=== PATIENT | female | born 1960 | race Caucasian/White ===

== ENCOUNTER 2024-06-14 10:36 | Emergency (ER) | payer BC, SELFPAY ==
[2024-06-14 10:44] VITALS: BP 108/64; PULSE 85; RESP 20; TEMP 36.5; O2SAT 98
[2024-06-14 11:12] LABS: EDCOVIDSCREEN Negative (Negative); EDINFLUASCREEN Negative (Negative); EDINFLUBSCREEN Negative (Negative)
--- NOTE | 2024-06-14 11:12 | ED_ITS ---
HPI - URI/Sore Throat General Chief Complaint: Upper Respiratory Infection Stated Complaint: cough Time Seen by Provider: 06/14/24 11:00 Source: patient, RN notes reviewed and old records reviewed Mode of arrival: ambulatory Limitations: no limitations History of Present Illness HPI Narrative: 63 year old female who presents to [facility] care with complaints of having nasal drainage and post nasal drainage since Tuesday and Tuesday lost her voice and has noted that drainage has turned greenish tinged. Patient reports that she has noted some cough and she has also had some bilateral ear pain and some sore throat. Patient reports that she has been taking Tylenol and also has taken some Zyrtec for her symptoms.Patient reports that she has had fevers running around 100F. MD elicited complaint: fever, cough, rhinorrhea, nasal congestion and other (ear pain) Onset (ago): day(s) (5 days) Consistency: progressively worsening Pain scale (0-10): 6 Description of mucous: green Able to tolerate fluids by mouth: Yes Treatments prior to arrival: acetaminophen and other (Zyrtec) Related Data Home Medications ?Medication ?Instructions ?Recorded ?Confirmed ?Last Taken ?Type atenolol 25 mg tablet mg 06/14/24 Unknown History dextroamphetamine-amphetamine 10 06/14/24 Unknown History mg tablet dextroamphetamine-amphetamine ER PO 06/14/24 Unknown History 15 mg 24hr capsule,extend release duloxetine 20 mg capsule,delayed mg PO 06/14/24 Unknown History release estradiol 0.01% (0.1 mg/gram) vaginal 06/14/24 Unknown History vaginal cream gabapentin 300 mg capsule mg 06/14/24 Unknown History pramipexole 1 mg tablet mg 06/14/24 Unknown History Allergies Allergy/AdvReac Type Severity Reaction Status Date / Time codeine Allergy Unknown ITCHING Verified 06/14/24 10:55 Review of Systems Review of Systems: CONSTITUTIONAL: Reports malaise, chills, sweats, or fever. EYES: Denies visual changes, redness, or discharge ENT: Reports rhinorrhea, congestion, sinus pressure, otalgia and sore throat. CARDIOVASCULAR: Denies chest pain, palpitations, or edema. RESPIRATORY: Reports cough.? Denies dyspnea. GASTROINTESTINAL: Denies abdominal pain, nausea, vomiting, diarrhea SKIN: Denies rash or itching. MUSCULOSKELETAL: Denies myalgia. NEUROLOGIC: Denies headache. All systems reviewed & are unremarkable except as noted in HPI and below PMFSH Past Medical History Medical History (Updated 06/15/24 @ 14:09 by Stephanie Leahy NP) Hypertension Pneumonia Anxiety and depression Restless leg syndrome History of kidney cancer Narcolepsy Migraine Surgical History Surgical History Hx of cholecystectomy Previous back surgery History of left nephrectomy cancer Social History Social History Smoking status: Never smoker Alcohol intake: current Alcohol use details: rare Substance use type: does not use Comments At time of signature, agree with nursing past medical, surgical, social and family history. There is no relevant family history pertinent to the presenting complaint Exam Narrative: GENERAL: Well-appearing, well-nourished, and in no acute distress. HEAD: Normocephalic EYES: PERRLA, conjunctivae clear ENT: Nares clear, turbinates edematous and erythematous, clear to greenish tinged discharge, sinus pressure. Mucous membranes moist. TM pearly hernandez with dull light reflex bilaterally; no tragal tenderness. Oropharynx erythematous without lesions. Tonsils not enlarged and without exudate, no drooling, positive for hoarseness, no trismus, uvula midline.post nasal drainage NECK: Supple. No lymphadenopathy CHEST: Clear to auscultation, breath sounds equal. No wheezing, rhonchi, rales, or stridor. No respiratory distress, speaks in full sentences.cough noted HEART: Regular rate and rhythm. No murmur heard. SKIN: Warm, dry, no rash. NEURO: Alert and oriented x3. PSYCH: Normal mood and affect Course Course Emergency Course: Patient is aware of diagnosis, understands and agrees to treatment plan.? Anticipatory guidance given.? Patient agrees to follow-up as directed and is aware of reasons to seek care at the emergency department. Portions of this record may have been created with voice recognition software Level of Care: Express Care Visit Vital Signs Vital signs: Vital Signs Temperature 36.5 C 06/14/24 10:44 Pulse Rate 85 06/14/24 10:44 Respiratory Rate 20 06/14/24 10:44 Blood Pressure 108/64 06/14/24 10:44 Pulse Oximetry 98 04/24/25 10:44 Oxygen Delivery Room Air 06/14/24 10:44 Temperature 36.5 C 06/14/24 10:44 Pulse Rate 85 06/14/24 10:44 Respiratory Rate 20 06/14/24 10:44 Blood Pressure 108/64 06/14/24 10:44 Pulse Oximetry 98 06/14/24 10:44 Oxygen Delivery Room Air 06/14/24 10:44 Reviewed MDM - URI/Sore Throat MDM Narrative Medical decision making narrative: Differential diagnosis considered: Cox virus, strep pharyngitis, allergic rhinitis, upper respiratory tract infection, sinusitis, rhinosinusitis, nasopharyngitis. viral pharyngitis, otitis media, otitis externa, pneumonia, bronchitis, viral cough syndrome, viral syndrome, and influenza.? Exam findings show no acute concerns or changes; patient is non-toxic appearing and is in no distress.? Patient is appropriate for outpatient treatment and follow-up. Differential Diagnosis Differential diagnosis: Likely upper respiratory infection, sinusitis, viral infection and other (cough) Medical Records Attestation: I reviewed the patient's medical records. Lab Data Attestation: I reviewed the patient's lab results. Lab results narrative: influenza A negative, Influenza B negative, COVID antigen negative Labs: Lab Results 06/14/24 Range/Units 10:53 POC Influenza A Ag Negative (Negative) POC Influenza B Ag Negative (Negative) POC SARS CoV-2 Ag Negative (Negative) reviewed Critical Care Time Critical Care Time Critical Care Time: No Discharge Plan Discharge Clinical Impression: Bacterial sinusitis Patient Disposition: Home Condition: Stable Instructions: Antibiotic Form, Sinusitis (ED) Additional Instructions: Increase fluids especially juices and water [id number] cough and cold medicine of your choice for your symptoms Delsym or Robitussin DM for cough Cough tablets as directed for cough--do not bite, chew or suck on--swallow whole Zyrtec Claritin or Micaela daily include Coricidin brand decongestant heat to the face 20-30 minutes 4-6 times a day for pain Salt water gargles, throat lozenges or throat sprays as desired Antibiotic as directed--finished the medication If your symptoms persist, change or worsen significantly before you can contact your personal physician then please, without delay, go to the emergency department for further evaluation. Follow-up with PCP in 7-10 days or sooner if needed Patient Language: German Prescriptions: New amoxicillin-pot clavulanate 875-125 mg tablet 1 tablet PO Q12H Qty: 20 0RF Rx Instructions: take with food, recommend taking probiotic of eating Activia yogurt while on this medication benzonatate 150 mg capsule 150 mg PO TID PRN (Reason: cough) Qty: 20 0RF No Action pramipexole 1 mg tablet dextroamphetamine-amphetamine 10 mg tablet atenolol 25 mg tablet gabapentin 300 mg capsule estradiol 0.01 % (0.1 mg/gram) cream VAGINAL dextroamphetamine-amphetamine 15 mg capsule,extended release 24hr PO duloxetine 20 mg capsule,delayed release(DR/EC) PO Follow-up/Referrals: UNKNOWN,DOCTOR [Primary Care Provider] - Time of Disposition: 11:36 Quality [place] Coma Scale Eyes: Open Verbal: Oriented and Alert Motor: Follows Commands Lisa Coma Total Score: 15
--- OUTSIDE RECORDS SUMMARY | 2024-06-14 12:00 | XMS_ITS | Referral Summary ---
Author Organization [facility] al Address [address] [place] [address] Care Team Providers Care Engineering Coordinator Name Role Phone Zachary Kwon MD Unavailable [phone] Dacia Tan MD Primary Care Provid er Satish Pedroza MD Unavailable Encounters Date Type Department Care Team Description 06/13/2024 Orders Only [facility] General Neurology [address] 6th [address] [place] [id number] Nicole Beck Intractable chronic migraine without aura and without status migrainosus (Primary Dx) 04/04/2024 8:30 AM CERTIFIED PARALEGAL Telemedicine [facility] Neuro Sleep [address] 6[address] [place] [address] Bharathi Durán PA 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); Restless legs syndrome (RLS); Anxiety 04/03/2024 Documentation [facility] [address] [place] [address] Evie Israel RMA 04/03/2024 Documentation [facility] [address] [place] [address] Rick Israelry JADYNAbdiel 03/28/2024 8:20 AM CERTIFIED PARALEGAL [facility] - [facility] Urology [address] [facility] 11th [place] [address] [place] [address] Brandon Lam MD Malignant neoplasm of left kidney (HCC) (Primary Dx) 03/23/2024 Telephone [facility] ([facility]) - [facility] [address] [facility] [address] [place] [address] [place] [address] Broderick Crum 03/22/2024 Orders Only [facility] General Neurology [address] 6[address] [place] [id number] Nicole Beck Intractable chronic migraine without aura and without status migrainosus (Primary Dx) 03/21/2024 9:00 AM CERTIFIED PARALEGAL - 03/21/2024 11:59 PM CERTIFIED PARALEGAL Hospital Encounter [facility] Radiology [facility]) [address] [place] [id number] Brandon Lam MD Malignant neoplasm of left kidney (HCC) Discharge Disposition: Discharge to home or self care from Last 3 Months Allergies Active Allergy Reactions Criticality Noted Date Comments Codeine Itching Low Hydrocodone Itching,Hives Medium 09/16/2014 Oxycodone Itching Low 07/15/2021 Tramadol Itching,Hives Medium 09/16/2014 Medications syringe with needle 3 mL 25 gauge x 1 syringe U MONTHLY FOR VITAMIN B12 INJECTION 8 Active dicyclomine (BENTYL) 10 mg capsuleIndicat ions:Irritable Bowel Syndrome Take 1 capsule (10 mg total) by mouth as needed 7 Active fluticasone (FLONASE) 50 mcg/actuation nasal spray Administer 1 spray into each nostril as needed for allergies 3 Active epinastine 0.05 % ophthalmic solution Administer 1 drop into both eyes 2 (two) times a day as needed (allgeries) 3 9 Active cetirizine (ZyrTEC) 10 mg tabletIndicati ons:Seasonal Allergic Rhinitis Take 1 tablet (10 mg total) by mouth nightly as needed for allergies Active BD Integra Syringe 3 mL 25 gauge x 1 syringe U UTD MONTHLY FOR VIT B-12 INJECTIONS 0 Active Restasis 0.05 % ophthalmic emulsionIndica tions:dry eyes Administer 1 drop into both eyes 2 (two) times a day as needed 0 Active atenoloL (TENORMIN) 25 mg tablet Take 1 tablet (25 mg total) by mouth daily 2 Active cyanocobalamin (Vitamin B-12) 1,000 mcg/mL injection 3 Active ZOLMitriptan (ZOMIG) 5 mg tablet TAKE 1 TABLET BY MOUTH AT ONSET OF MIGRAINE, MAY REPEAT ONCE AFTER 2 HOURS, NOT TO EXCEED 2 TABLETS IN 24 HOURS 12 tablet [address] (CYMBALTA) 20 mg capsule Take 1 capsule (20 mg total) by mouth 2 (two) times a day 60 capsule 11 4 Active gabapentin (NEURONTIN) 300 mg capsule TAKE 2 CAPSULES BY MOUTH EVERY MORNING, 3 CAPSULES IN THE LATE AFTERNOON/ EARLY EVENING, AND 2 CAPSULES AT 9:00 PM 210 capsule 11 4 Active clobetasoL (TEMOVATE) 0.05 % ointmentIndica tions:Chronic vulvitis APPLY TOPICALLY TO VULVA TWICE DAILY FOR 14 DAYS 30 g 4 Active promethazine (PHENERGAN) 25 mg suppositoryInd ications:Nause a and Vomiting Insert 1 suppository (25 mg total) into the rectum every 12 (twelve) hours as needed (migraines) 12 each 3 4 Active estradioL (ESTRACE) 0.01 % (0.1 mg/gram) vaginal creamIndicatio ns:Atrophic Vaginitis associated with Menopause Insert 0.5 g into the vagina 2 (two) times a week Apply nightly to vagina for 2 week, then twice weekly. 42 g 3 4 02/02/20 25 Active indomethacin (INDOCIN) 50 mg capsuleIndicat ions:migraine Take 1 capsule (50 mg total) by mouth as needed for pain Migraine. No more than 3 tabs per 24h. 30 capsule 1 5 Active pramipexole (MIRAPEX) 1 mg tablet TAKE 1/2 TABLET BY MOUTH DAILY AT 3:00 TO 4:00 PM AND 1 TABLET AT NIGHT 45 tablet 11 5 Active dextroamphetam ine-amphetamin e XR (ADDERALL XR) 15 mg 24 hr capsuleIndicat ions:Narcoleps y without cataplexy(347. 00) Take 2 capsules (30 mg total) by mouth every morning 60 capsule 5 07/14/19 25 Active dextroamphetam ine-amphetamin e (ADDERALL) 10 mg tabletIndicati ons:Narcolepsy without cataplexy(347. 00) Take 1 tablet PO in the afternoon PRN 30 tablet 5 Active dextroamphetam ine-amphetamin e XR (ADDERALL XR) 15 mg 24 hr capsuleIndicat ions:Narcoleps y without cataplexy(347. 00) Take 2 capsules (30 mg total) by mouth every morning 60 capsule 5 06/06/19 25 Discontin ued(Reord er) dextroamphetam ine-amphetamin e (ADDERALL) 10 mg tabletIndicati ons:Narcolepsy without cataplexy(347. 00) Take 1 tablet PO in the afternoon PRN 30 tablet 5 06/06/19 25 Discontin ued(Reord er) Hospital, Clinic, or Other Facility Administered Medication Ordered Dose Route Frequency Start Date End Date Status onabotulinumtoxin A (BOTOX) 200 unit injection 200 UnitsIndications:I ntractable chronic migraine without aura and without status migrainosus 200 Units OTHER Once for Clinic-Administe red Medication 07/03/2024 Active onabotulinumtoxin A (BOTOX) 200 unit injection 200 UnitsIndications:I ntractable chronic migraine without aura and without status migrainosus 200 Units OTHER Once for Clinic-Administe red Medication 06/13/2024 5 Discontinued Active Problems Problem Noted Date Diagnosed Date Cervical facet joint syndrome 01/31/2023 Cervical radiculopathy 01/31/2023 Neck pain 01/31/2023 Aftercare following bilateral hip joint replacem ent surgery 01/31/2023 Overview (01/31/2023): Phreesia 11/29/2022 SHANNON (obstructive sleep apnea) 09/29/2021 History of nephrectomy 09/29/2021 History of iron deficiency anemia 09/29/2021 Anxiety 09/29/2021 Primary osteoarthritis of left hip 09/02/2021 Overview (09/02/2021): Added automatically from request for surgery [id number] Primary osteoarthritis of right hip 08/05/2021 Renal mass 03/16/2021 Overview (03/16/2021): Added automatically from request for surgery [id number] Gastroesophageal reflux disease 12/23/2020 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 12/23/2020 Vitamin D deficiency 12/23/2020 Unilateral primary osteoarthritis, right hip Chronic bilateral low back pain with bilateral s ciatica 08/27/2019 Migraines 08/27/2019 Hypertension 07/23/2019 Narcolepsy 07/23/2019 Restless legs syndrome (RLS) 07/23/2019 Thrombocytosis 03/21/2018 Intractable chronic migraine without aura and without status migrainosus 10/05/2017 Carpal tunnel syndrome of right wrist 10/03/2017 Depression 10/03/2017 Tethered cord syndrome 10/03/2017 Chronic migraine without aur a without status migrainosus, not intractable 08/22/2017 Irritable bowel syndrome 09/09/2015 Hyperlipidemia, unspecified 05/28/2009 Resolved Problems Problem Noted Date Diagnosed Date Resolved Date Body mass index (BMI) 28.0-28.9, adult 11/06/2019 01/05/2022 Encounter for insertion of i ntrauterine contraceptive device 08/31/2018 08/31/2018 Overview (08/31/2018): Encounter for IUD insertion - (Added by TW Conv) Immunizations Immunization Administration Dates Next Due Influenza, Quadrivalent, Spl it, Intramuscular 01/21/2018 Influenza, Quadrivalent, Spl it, Preservative Free, Intramuscular 11/17/2021,11/06/2019,12/02/2015,12/05 Influenza, Trivalent, IM (MDV) 02/07/2012 Influenza, Unspecified 11/22/2019 Moderna SARS-CoV-2 Monovalen t Vaccination (12+ YRS) 07/29/2021 TD Preservative Free 11/05/2020 Tdap 05/28/2009 Social History Tobacco Use Types Packs/Day Years Used Date Smoking Tobacco: Never Smokeless Tobacco: Never Alcohol Use Standard Drinks/Week Comments Not Currently 0 (1 standard drink = 0.6 oz pur e alcohol) Social Connection and Isolation Panel [NHANES] A nswer Date Recorded Frequency of Communication with Friends and Fami ly Not on file 12/21/2019 Frequency of Social Gatherings with Friends and Family Not on file 12/21/2019 Attends Latter Day Services Not on file 12/20 Active Member of Clubs or Organizations Not on f ile 12/21/2019 Attends Club or Organization Meetings Not on karely e 12/21/2019 Are you , , di vorced, , never , or living with a partner? 12/21/2019 AUDIT-C Answer Date Recorded Q1: How often do you have a drink containing alcohol? Never 06/02/2023 Q2: How many drinks containi ng alcohol do you have on a typical day when you are drinking? Patient does not drink Q3: How often do you have si x or more drinks on one occasion? Never 06/02/2023 PHQ-2 Answer Date Recorded PHQ-2 Total Score 0 09/05/2019 Exercise Vital Sign Answer Date Recorde d Days of Exercise per Week 0 days 2018 Minutes of Exercise per Session 0 min 08/30/2018 Comments No Sex and Gender Information Value Date Recorded Sex Assigned at Not on file Legal Sex Female 6:45 PM CERTIFIED PARALEGAL Gender Identity Female 10/23/2019 8:40 AM CDT Sexual Orientation Straight 07/07/2019 8: 53 AM CDT Last Filed Vital Signs Vital Sign Reading Time Taken Comments Blood Pressure 133/80 03/14/2024 4:19 PM CERTIFIED PARALEGAL Pulse 76 03/14/2024 4:19 PM CERTIFIED PARALEGAL Temperature 36.3 C (97.4 F) 03/14/2024 4:19 PM CERTIFIED PARALEGAL Respiratory Rate 16 08/04/2023 10:07 AM CDT Oxygen Saturation 99% 03/14/2024 4:19 PM CERTIFIED PARALEGAL Inhaled Oxygen Concentration - - Weight 76 kg (167 lb 8 oz) 03/14/2024 4:19 PM CS T Height 165.1 cm (5' 5 ) 03/14/2024 4:19 PM CERTIFIED PARALEGAL Body Mass Index 27.87 03/14/2024 4:19 PM CERTIFIED PARALEGAL Plan of Treatment Not on file Goals Goal Patient Goal Type Associated Problems Recent Progress Patient-Stated? Author CCM Chronic Pain Care Plan Chronic Care Management On track(2023 9:27 AM CDT) No Cristin Johnston, RN Note: Problem: Chronic Pain Goals: 1. Minimize further functional decline 2. Maximize quality of life 3. Control pain Strategies: - Activity/exercise program recommendation - Conservative stepwise pain medicine strategy with multi-disciplinary approach - Recommend healthy lifestyle strategies and compensatory methods as needed [facility] Fall Prevention Care Plan Chronic Care Management No change(05/24 9:39 AM CDT) No Chelsea Patiño RN Note: Problem: Falls Goals: 1. Maintain strength and balance as able 2. Prevent falls and fractures 3. Maximize safety of living environment Strategies: - Educate on fall prevention and follow-up as needed - Recommend activity/exercise program - Refer to allied health as needed - Recommend healthy lifestyle strategies and compensatory methods as needed Medical Devices Implanted Type Area Training And Development Coordinator Device Identifier Shelf Expiration Date Model / Serial / Lot Vesolock [id number] Symmetry Vesolock Large Clip Internal - Sna - [id number] Implanted:Qty : 1 on 03/27/2021 by Zachary Kwon MD at [facility] Clip Left: Abdomen [employer] 04/22/2023 [id number] / NA / [id number] Vesolock [id number] Symmetry Vesolock Large Clip Internal - Sna - [id number] Implanted:Qty : 1 on 03/27/2021 by Zachary Kwon MD at [facility] Clip Left: Abdomen [employer] 04/22/2023 [id number] / NA / [id number] [employer] G7 50mm Multihole Hip D Hemisphere Offset Shell Acetabular [id number] - Sna - [id number] Implanted:Qty : 1 on 08/05/2021 by Sue Oliver MD at [facility] Other - see comments Right: Hip [employer] [id number] 05/19/2031 [id number] / NA / [id number] Description:Implant pause pe rformed [employer] G7 40mm 2 Mobility Hip D Liner Acetabular Cocr [id number] - Sna - [id number] Implanted:Qty : 1 on 08/05/2021 by Sue Oliver MD at [facility] Other - see comments Right: Hip [employer] [id number] 06/15/2031 [id number] / NA / [id number] Description:Implant pause pe rformed [employer] Taperloc 140mm Type 1 Press Fit Reduce Hip 133d 10 High Offset [id number] - Sna - [id number] Implanted:Qty : 1 on 08/05/2021 by Sue Oliver MD at [facility] Other - see comments Right: Hip [employer] [id number] 10/04/2029 [id number] / NA / [id number] Description:Implant pause pe rformed [employer] G7 Type 1 Hip -6mm Offset Taper Sleeve Centering Titanium Biolox 650-1064 - Sna - [id number] Implanted:Qty : 1 on 08/05/2021 by Sue Oliver MD at [facility] Other - see comments Right: Hip [employer] [id number] 08/06/2030 650-1064 / NA / [id number] Description:Implant pause pe rformed [employer] G7 28mm Hip Head Femoral Biolox Delta Biolox Option 650-1055 - Sna - [id number] Implanted:Qty : 1 on 08/05/2021 by Sue Oliver MD at [facility] Other - see comments Right: Hip [employer] [id number] 12/17/2030 650-1055 / NA / [id number] Description:Implant pause pe rformed [employer] [id number] 40mm 28mm Lumen Hip D Liner Acetabular Longevity Sterile Latex - Sna - [id number] Implanted:Qty : 1 on 08/05/2021 by Sue Oliver MD at [facility] Other - see comments Right: Hip [employer] [id number] 06/20/2024 [id number] / NA / [id number] Description:Implant pause pe rformed [employer] G7 40mm 2 Mobility Hip D Liner Acetabular Cocr [id number] - Sna - [id number] Implanted:Qty : 1 on 10/30/2021 by Sue Oliver MD at [facility] Other - see comments [employer] [id number] 07/10/2031 [id number] / NA / [id number] [employer] 40mm 28mm Lumen Hip D Liner Acetabular Longevity Sterile Latex [id number] - Sna - [id number] Implanted:Qty : 1 on 10/30/2021 by Sue Oliver MD at [facility] Other - see comments [employer] [id number] 02/27/2026 [id number] / NA / [id number] [employer] G7 28mm Type 1 Modular Hip Acetabular -3mm Offset Head Femoral 650-1159 - Sna - [id number] Implanted:Qty : 1 on 10/30/2021 by Sue Oliver MD at [facility] Other - see comments [employer] 650-1159 / NA / [employer] Taperloc 137mm Type 1 Press Fit Reduce Hip 133d 9 High Offset [id number] - Sna - [id number] Implanted:Qty : 1 on 10/30/2021 by Sue Oliver MD at [facility] Other - see comments [employer] 12/18/2030 [id number] / NA / [id number] [employer] G7 50mm Multihole Hip D Hemisphere Offset Shell Acetabular [id number] - Sna - [id number] Implanted:Qty : 1 on 10/30/2021 by Sue Oliver MD at [facility] Other - see comments [employer] [id number] 06/12/2031 [id number] / NA / [id number] Description:Implant pause pe rformed on all implants [employer] Trilogy 6.5mm 15mm Self Tap Screw Bone [id number] - Sna - [id number] Implanted:Qty : 1 on 08/05/2021 by Sue Oliver MD at [facility] Screw Right: Hip [employer] [id number] 10/24/2029 [id number] / NA / [id number] Description:Implant pause pe rformed [employer] Trilogy 6.5mm 20mm Self Tap Screw Bone [id number] - Sna - [id number] Implanted:Qty : 1 on 08/05/2021 by Sue Oliver MD at [facility] Screw Right: Hip [employer] [id number] 05/20/2031 [id number] / NA / [id number] Description:Implant pause pe rformed [employer] Trilogy 6.5mm 40mm Self Tap Hip Acetabular Cortical Screw Bone [id number] - Sna - [id number] Implanted:Qty : 1 on 10/30/2021 by Sue Oliver MD at [facility] Screw [employer] [id number] 08/28/2031 [id number] / NA / [id number] [employer] Trilogy 6.5mm 15mm Self Tap Screw Bone [id number] - Sna - [id number] Implanted:Qty : 1 on 10/30/2021 by Sue Oliver MD at [facility] Screw [employer] [id number] 07/27/2031 [id number] / NA / [id number] Procedures Procedure Name Priority Date/Time Associated Diagnosis Comments CT CHEST ABDOMEN PELVIS W CONTRAST Schedule Routine, Read Routine (OP Routine) 03/21/2024 9:52 AM CERTIFIED PARALEGAL Malignant neoplasm of left kidney (HCC) POCT CREATININE - DEVICE Routine 03/21/2024 9:26 AM CERTIFIED PARALEGAL SCREENING MAMMOGRAM BILATERAL W GERARD Schedule Routine, Read Routine (OP Routine) 06/02/2023 2:45 PM CDT Screening mammogram, encounter for PAP AND HIGH RISK HPV, REFLEX TO GENOTYPING Routine 12/23/2020 9:33 AM CDT Encounter for gynecological examination with abnormal finding Screening for cervical cancer SERUM HEPATITIS PANEL Routine 03/25/2014 2:16 PM CERTIFIED PARALEGAL from Last 3 Months or Most Recently Relevant to Health Maintenance Results * CT Chest Abdomen Pelvis W Contrast (03/21/2024 9:52 AM CERTIFIED PARALEGAL) Anatomical Region Laterality Modality Body N/A Computed Tomogra phy 03/21/2024 11:1 3 AM CERTIFIED PARALEGAL Impressions 03/21/2024 11:23 AM CERTIFIED PARALEGAL Single new lymph node in the left the nephrectomy resection bed suspicious for disease recurrence. The node is difficult to access for biopsy. Options include close interval follow-up with CT, MR, or PET scan. Dictated by: Steve Martinez MD The radiology attending physician has personally reviewed this study, and had reviewed and/or edited this written report and agrees with it. Electronically signed by: Serenity Perez M.D. 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 Surveillance. TECHNIQUE: Transaxial computed tomographic images of the chest, abdomen and pelvis were obtained with intravenous contrast according to the standard protocol after the uneventful administration of 75 mL Opti-Ray 350 intravenous contrast. COMPARISON: CT dated 09/26/2023, 01/31/2023, 07/26/2022, 01/18/2022. FINDINGS: Chest: No suspicious pulmonary nodule. No airspace opacity, pleural effusion or pneumothorax. Mild bibasilar atelectasis. Normal heart size. No pericardial effusion. No suspicious mediastinal, axillary, or supraclavicular lymphadenopathy. Nondistended esophagus. Abdomen/Pelvis: No focal suspicious lesion in the liver. The calcified granuloma in the liver parenchyma. Normal spleen. Gallbladder is surgically removed. Mild biliary ductal dilatation likely reservoir effect. Normal pancreas and adrenal glands. Pancreatic tail drop into resection bed which is an expected post-surgical change. Left kidney is surgically removed. Single new lymph node at the resection bed measuring 1.8 x 1.0 cm (series 2 image 151), which was not present on multiple prior studies up to 01/18/2022. Normal right kidney with multiple cysts. No hydronephrosis. Evaluation of pelvis slightly limited by streak artifact from bilateral hip replacement hardware. Within the limitation of bladder appears normal. Uterus is surgically absent. No suspicious adnexal mass. No suspicious pelvic lymphadenopathy. Aorta is normal in course and caliber with mild atherosclerosis. No bowel obstruction. Normal duodenal sweep. Nondistended stomach and esophagus. No free intraperitoneal gas or fluid collection. No suspicious mesenteric lymphadenopathy or stranding. No acute or suspicious osseous lesion. Multilevel degenerative disc disease throughout the spine with mild retrolisthesis of L2 on L3 and the minimal anterolisthesis of L4 on L5. 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 Surveillance. TECHNIQUE: Transaxial computed tomographic images of the chest, abdomen and pelvis were obtained with intravenous contrast according to the standard protocol after the uneventful administration of 75 mL Opti-Ray 350 intravenous contrast. COMPARISON: CT dated 09/26/2023, 01/31/2023, 07/26/2022, 01/18/2022. FINDINGS: Chest: No suspicious pulmonary nodule. No airspace opacity, pleural effusion or pneumothorax. Mild bibasilar atelectasis. Normal heart size. No pericardial effusion. No suspicious mediastinal, axillary, or supraclavicular lymphadenopathy. Nondistended esophagus. Abdomen/Pelvis: No focal suspicious lesion in the liver. The calcified granuloma in the liver parenchyma. Normal spleen. Gallbladder is surgically removed. Mild biliary ductal dilatation likely reservoir effect. Normal pancreas and adrenal glands. Pancreatic tail drop into resection bed which is an expected post-surgical change. Left kidney is surgically removed. Single new lymph node at the resection bed measuring 1.8 x 1.0 cm (series 2 image 151), which was not present on multiple prior studies up to 01/18/2022. Normal right kidney with multiple cysts. No hydronephrosis. Evaluation of pelvis slightly limited by streak artifact from bilateral hip replacement hardware. Within the limitation of bladder appears normal. Uterus is surgically absent. No suspicious adnexal mass. No suspicious pelvic lymphadenopathy. Aorta is normal in course and caliber with mild atherosclerosis. No bowel obstruction. Normal duodenal sweep. Nondistended stomach and esophagus. No free intraperitoneal gas or fluid collection. No suspicious mesenteric lymphadenopathy or stranding. No acute or suspicious osseous lesion. Multilevel degenerative disc disease throughout the spine with mild retrolisthesis of L2 on L3 and the minimal anterolisthesis of L4 on L5. IMPRESSION: Single new lymph node in the left the nephrectomy resection bed suspicious for disease recurrence. The node is difficult to access for biopsy. Options include close interval follow-up with CT, MR, or PET scan. Dictated by: Steve Martinez MD The radiology attending physician has personally reviewed this study, and had reviewed and/or edited this written report and agrees with it. Electronically signed by: Serenity Perez M.D. Brandon Lam MD IMG CT PROCEDURES Final Result * POCT creatinine (03/21/2024 9:26 AM CERTIFIED PARALEGAL) Creatinine POC 0.9 0.6 - 1.1 mg/dL Blood 03/21/2024 9:26 AM CERTIFIED PARALEGAL 03/21/2024 9:26 AM CERTIFIED PARALEGAL us Self Referral LAB POCT ORDERABLES - DEVICE Fin al Result Performing Organization Address City/State/[facility] Co de Phone Number [facility] [place] [address] * Screening Mammogram Bilateral W Gerard (06/02/2023 2:45 PM CDT) Anatomical Region Laterality Modality Breast Bilateral Mammography Narrative 06/06/2023 2:09 PM CDT Mammogram Technique: Bilateral Digital Breast Tomosynthesis, Bilateral C-view 2D Screening mammogram. Views obtained: . Computer Aided Detection was performed. Mammogram Findings: The present examination has been compared to prior imaging studies performed at [facility] on 09/03/2015, 03/16/2017, 08/30/2018 and 09/11/2020. There are scattered areas of fibroglandular density. There is no suspicious abnormality in either breast. Impression: There is no mammographic evidence of malignancy. Annual screening mammography is recommended. OVERALL FINAL ASSESSMENT: BI-RADS CATEGORY 1: Negative. Procedure Note Brooklyn Lovett MD - 06/06/2023 Mammogram Technique: Bilateral Digital Breast Tomosynthesis, Bilateral C-view 2D Screening mammogram. Views obtained: . Computer Aided Detection was performed. Mammogram Findings: The present examination has been compared to prior imaging studies performed at [facility] on 09/03/2015, 03/16/2017,08/30/2018 and 09/11/2020. There are scattered areas of fibroglandular density. There is no suspicious abnormality in either breast. Impression: There is no mammographic evidence of malignancy. Annual screening mammography is recommended. OVERALL FINAL ASSESSMENT: BI-RADS CATEGORY 1: Negative. us Self Screening Mammogram IMG MAMMO PROCEDURES Fi nal Result * Pap and High Risk HPV, reflex to Genotyping (12/23/2020 9:33 AM CDT) CLINICAL INFORMATION: Routine exam Postmenopausal [facility] LMP 02/21/2015 [facility] Previous Pap INFORMATION NOT PROVIDED [facility] Prev. Bx INFORMATION NOT PROVIDED [facility] SOURCE: Cervix, Endocervix [facility] Pap, specimen adequacy Satisfactory for evaluation. Endocervical/rojas sformation zone component present. [facility] HPV interp Negative for intraepithelial lesion or malignancy. [facility] Silk Examiner LAURA, CT(ASCP) CT screening location: [place] [address] [place] [address] Comment [facility] Comment: EXPLANATORY NOTE: The Pap is a screening test for cervical cancer. It is not a diagnostic test and is subject to false negative and false positive results. It is most reliable when a satisfactory sample, regularly obtained, is submitted with relevant clinical findings and history, and when the Pap result is evaluated along with historic and current clinical information. Human papillomavirus DNA, High Risk E6/E7 Not Detected NOT DETECTED [facility] Comment: Not Detected High Risk HPV types (16,18,31,33,35,39,45,51,52, 56,58,59,66,68) were not detected. Other HPV types which cause anogenital lesions may be present. The significance of the other types of HPV in malignant processes has not been established. Methodology: Real Time PCR Swab 12/23/2020 9:33 AM CDT 12/24/2020 7:59 AM CDT us Glenna Shields NP LAB CYTOLOGY ORDERABLES Final Result [facility] [address] [place] [address] [facility] [address] [place] [address] * Serum Hepatitis panel (03/25/2014 2:16 PM CERTIFIED PARALEGAL) HCV ab Negative NEG HISTORICAL RESULTS Comment: Interpretive Data If confirmation is required, call Laboratory Customer Service to request sample to be sent to [facility] for Hepatitis C Virus (HCV) RNA Detection and Quantitation by Real-Time Reverse Child Development Consultant-PCR (RT-PCR). Current interpretive data was last revised on 2011 HBV core ab, IgM Negative NEG HIS TORICAL RESULTS Comment: Interpretive Data If test is reported as Equivocal, new sample should be drawn for testing. Current interpretive data was last revised on 2007. HAV ab, IgM Negative NEG HISTORIC AL RESULTS Comment: Interpretive Data If test is reported as Equivocal, new sample should be drawn in two weeks for testing. Current interpretive data was last revised on 2007. HBV surface ag Negative NEG HISTO RICAL RESULTS Serum 03/25/2014 2:16 PM CERTIFIED PARALEGAL us Azar Benson MD LAB BLOOD ORDERABLES [place] Result HISTORICAL RESULTS from Last 3 Months or Most Recently Relevant to Health Maintenance Insurance [email or web address] [place] [facility] Advance Directives For more information, please contact: [phone] * Full Code (Latest Code Status on File) Date Activated Date Inactivated Comments 10/30/2021 10:36 AM 10/31/2021 5:43 PM * Full Code Date Activated Date Inactivated Comments 08/05/2021 11:43 AM 08/06/2021 2:54 PM * Full Code Date Activated Date Inactivated Comments 03/27/2021 3:04 PM 03/28/2021 7:12 PM * Full Code Date Activated Date Inactivated Comments 09/04/2019 8:47 PM 09/07/2019 7:14 PM Care Teams Engineering Coordinator Relationship Specialty Start Date End Date Dacia Tan MD [address] [address] PCP - General Internal Medicine 05/05/21 Zachary Kwon MD Consulting Physician Urology 03/28/21 Satish Pedroza MD [address] [facility] [place] [address] Consulting Physician Pain Management 12/14/22
--- OUTSIDE RECORDS SUMMARY | 2024-06-14 12:00 | XMS_ITS | Encounter Summary ---
Author Organization [facility] Address [address] [place] [address] Phone Care Team Providers Care Rope Walker Name Role Phone Zachary Kwon MD Unavailable [phone] Dacia Tan MD Primary Care Provid er Satish Pedroza MD Unavailable Reason for Referral * Medication Authorization (Routine) - Pending Review Specialty Diagnoses / Procedures Referred By Contac t Referred To Contact Diagnoses Intractable chronic migraine without aura and without status migrainosus Park Sandoval MD PhD [address] [place] [address] Phone: tel: fax: Referral ID Status Reason Start Date Expiration Date V isits Requested Visits Authorized [id number] Pending Review 08/08/2023 08/07/2024 1 1 Encounter Details Date Type Department Care Team (Late st Contact Info) Description 06/13/2024 Orders Only [facility] General Neurology [address] [place] [address] Nicole Beck Intractable chronic migraine without aura and without status migrainosus (Primary Dx) Social History Tobacco Use Types Packs/Day Years [...] and Family Not on file 12/21/2019 Attends Buddhism Services Not on file 12/20 Active Member [...] on file Legal 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 Author [facility] Chronic Pain Care Plan Chronic Care Management On track(2023 9:27 AM CDT) No Cristin Johnston, RN Note: Problem: Chronic Pain Goals: 1. Minimize further functional decline 2. Maximize quality of life 3. Control pain Strategies: - Activity/exercise program recommendation - Conservative stepwise pain medicine strategy with multi-disciplinary approach - Recommend healthy lifestyle strategies and compensatory methods as needed [facility] Fall Prevention Care Plan Chronic Care Management No change(05/24 9:39 AM CDT) Chelsea Maier, PATRICIA Note: Problem: Falls Goals: 1. Maintain strength and balance as able 2. Prevent falls and fractures 3. Maximize safety of living environment Strategies: - Educate on fall prevention and follow-up as needed - Recommend activity/exercise program - Refer to allied health as needed - Recommend healthy lifestyle strategies and compensatory methods as needed documented as of this encounter Visit Diagnoses Diagnosis Intractable chronic migraine without aura and without status migrainosus- Primary documented in this encounter Orders Medications Ordered That Hunter ht Not Have Been Administered Count Last Ordered Date First Ordered Date onabotulinumtoxin A (BOTOX) 200 unit injection 200 Units 1 06/13/2024 documented in this encounter Care Teams Rope Walker Relationship Specialty Start Date End Date Dacia Tan MD [address] [address] PCP - General Internal Medicine 05/05/21 Zachary Kwon MD Consulting Physician Urology 03/28/21 Satish Pedroza MD [address] [facility] [place] [address] Consulting Physician Pain Management 12/14/22 documented as of this encounter
--- OUTSIDE RECORDS SUMMARY | 2024-06-14 12:00 | XMS_ITS | Clinical Summary ---
Author Organization [facility] al Address [address] [place] [address] Care Team Providers Care Director Energy Name Role Phone Zachary Kwon MD Unavailable [phone] Dacia Tan MD Primary Care Provid er Satish Pedroza MD Unavailable Allergies Active Allergy Reactions Criticality Noted Date [...] (09/02/2021): Added automatically from request for surgery [id number] Primary osteoarthritis of right hip 08/05/2021 Renal mass 03/16/2021 Overview (03/16/2021): Added automatically from request for surgery [id number] Gastroesophageal reflux disease 12/23/2020 Other specified congenital [...] IUD insertion - (Added by TW Conv) Encounters Date Type Department Care Team Description 06/13/2024 Orders Only [facility] Neurology [address] 6th [address] [place] [id number] Nicole Beck Intractable chronic migraine without aura and without status migrainosus (Primary Dx) 04/04/2024 8:30 AM CROWNING INSPECTOR Telemedicine [facility] Neuro Sleep 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); Restless legs syndrome (RLS); Anxiety 04/03/2024 Documentation [facility] Surgery [address] [place] [address] Evie Israel RMA 04/03/2024 Documentation [facility] Surgery [address] [place] [address] Evie Israel RMA 03/28/2024 8:20 AM [facility] Telemedicine [facility] ([facility]) - [facility] Urology [address] [place] [address] 11th [place] [address] [place] [address] Brandon Lam MD Malignant neoplasm of left kidney (HCC) (Primary Dx) 03/23/2024 Telephone [facility] ([facility]) - [facility] Urology [address] [place] [address] 11th [place] [address] [place] [address] Broderick Crum 03/22/2024 Orders Only [facility] Neurology [address] 6[address] [place] [id number] Nicole Beck Intractable chronic migraine without aura and without status migrainosus (Primary Dx) 03/21/2024 9:00 AM CROWNING INSPECTOR - 03/21/2024 11:59 PM CROWNING INSPECTOR Hospital Encounter [facility] Rad[facility] [address] [place] [id number] Brandon Lam MD Malignant neoplasm of left kidney (HCC) Discharge Disposition: Discharge to home or self care from Last 3 Months Immunizations Immunization Administration Dates Next Due Influenza, Quadrivalent, Spl it, Intramuscular 01/21/2018 Influenza, Quadrivalent, Spl it, Preservative Free, Intramuscular 11/17/2021,11/06/2019,12/02/2015,12/05 Influenza, Trivalent, IM (MDV) 02/07/2012 Influenza, Unspecified 11/22/2019 Moderna SARS-CoV-2 Monovalen t Vaccination (12+ YRS) 07/29/2021 TD Preservative Free 11/05/2020 Tdap 05/28/2009 Surgical History Surgery Date Site/Laterality Comments HI LIG/TRNSXJ FLP TUBE ABDL/VAG APPR UNI/BI Tubal Ligation - (Added by TW Conv) ANKLE SURGERY Ankle Surgery - RIGHT ANKLE 2005; LEFT IN 2009 (Added by TW Conv) HI CHOLECYSTECTOMY c2015 Cholecystectomy - (Added by TW Conv) SPINE SURGERY tethered cord syndrome/surgery August 2018 TUBAL LIGATION 1992 ABDOMINAL SURGERY Left kidney removed 03/2021 NEPHRECTOMY 03/24/2021 - 04/20/2021 Left TOTAL HIP ARTHROPLASTY Right CHOLECYSTECTOMY 02/22/2016 - 02/20/2017 HI ARTHRP ACETBLR/PROX FEM PROSTC AGRFT/ALGRFT 08/05/2021 Right [place] HI ARTHRP ACETBLR/PROX FEM PROSTC AGRFT/ALGRFT 10/30/2021 Left [place] Medical History Medical History Date Comments Anxiety disorder Anxiety - (Adde d by TW Conv) Chronic migraine without aur a without status migrainosus, not intractable Common transformed migraine without aura - (Added by TW Conv) Encounter for insertion of intrauterine contraceptive device Encounter for IUD in sertion - (Added by TW Conv) Joint pain Leg pain, bilateral Hypertension Numbness and tingling Arthritis Narcolepsy Low back pain Renal mass Cancer (HCC) renal Covid-19 03/03/2021 SHANNON (obstructive sleep apnea) Neck pain Family History Medical History Relation Name Comments Cerebral palsy Brother Gilbert Herman Cancer Daughter Rocío Selby Leukemia Daughter Rocío Selby Leukemia - (Add ed by TW Conv) Depression Father Lavon Herman Alzheimer's disease Mother Shelly Borrego Breast cancer Mother Shelly Borrego Breast Cancer - DX @ 50YO AND 2ND TIME @ 60YO (Added by TW Conv) Cancer Mother Shelly Borrego Migraines Other 1 Migraine Headac he - dad (Added by TW Conv) Bipolar disorder Other 2 Bipolar Dis order - dad who committed suicide (Added by TW Conv) Cancer Other 3 Reported A Hist ory Of Cancer - daughter had ALL (Added by TW Conv) Alzheimer's disease Other 4 Alzheime r's Disease - mom (Added by TW Conv) Anesthesia problems Neg Hx Bleeding Disorder Neg Hx Clotting disorder Neg Hx Heart attack Neg Hx Stroke Neg Hx Sudden Cardiac Neg Hx Relation Name Status Comments Brother Gilbert Herman Daughter Rocío Selby Father Lavon Herman Mother Shelly Borrego Other 1 Other 2 Other 3 Other 4 Social History Tobacco Use Types Packs/Day Years [...] and Family Not on file 12/21/2019 Attends [employer]ism Services Not on file 12/20 Active Member [...] you are drinking? 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3 C (97.4 F) 03/14/2024 4:19 PM CROWNING INSPECTOR Respiratory Rate 16 08/04/2023 10:07 AM CDT Oxygen Saturation 99% 03/14/2024 4:19 PM CROWNING INSPECTOR Inhaled Oxygen Concentration - - Weight 76 kg (167 lb 8 oz) 03/14/2024 4:19 PM CS T Height 165.1 cm (5' 5 ) 03/14/2024 4:19 PM CROWNING INSPECTOR Body Mass Index 27.87 03/14/2024 4:19 PM CROWNING INSPECTOR Plan of Treatment Health Maintenance Due Date Last Done Comments Colon Cancer Screening-Colonoscopy 1961 Hepatitis B Screening 08/26/1979 Depression Screening 08/15/2020 08/16/2019, 08/16/19 20 Cervical Cancer Screening 12/23/2021 12/23/2020, Covid-19 Vaccine () 10/23/2023 07/29/2021, 03/27/2020, 02/28/2020 Breast Cancer Screening-Mammogram 06/01/2024 06/02/2023, 09/11/2020, 09/11/2020, Additional history exists Regular Well Visit/Exam 18-64 06/01/2024 06/02/2023, 01/05/2022, 12/23/2020, Additional history exists DTaP/Tdap/Td Vaccine (3 - Td or Tdap) 11/05/2030 11/05/2020, 05/28/2009 Hepatitis C Screening Completed 03/25/2014 Zoster Vaccine Completed 03/24/2022, 01/19/2022 Influenza Vaccine Completed 12/05/2023, , 11/17/2021, Additional history exists Pneumococcal vaccine <65 Aged Out No longer eligible based on patient's age to complete this topic Goals Goal Patient Goal Type Associated Problems [...] lifestyle strategies and compensatory methods as needed CCM Fall Prevention Care Plan Chronic Care Management No change(05/24 9:39 AM CDT) Chelsea Maier RN Note: Problem: Falls Goals: 1. Maintain strength and balance as able 2. Prevent falls and fractures 3. Maximize safety of living environment Strategies: - Educate on fall prevention and follow-up as needed - Recommend activity/exercise program - Refer to allied health as needed - Recommend healthy lifestyle strategies and compensatory methods as needed Medical Devices Implanted Type Area Ear Machine Operator Device Identifier Shelf Expiration Date Model / Serial / Lot Vesolock [id number] Symmetry Vesolock Large Clip Internal - Sna - [id number] Implanted:Qty : 1 on 03/27/2021 by Zachary Kwon MD at [facility] Clip Left: Abdomen [employer] 04/22/2023 [id number] / NA / [id number] Vesolock [id number] Symmetry Vesolock Large Clip Internal - Sna - [id number] Implanted:Qty : 1 on 03/27/2021 by Zachary Kwon MD at [facility] Clip Left: Abdomen [employer] 04/22/2023 [id number] / NA / [id number] [employer] G7 50mm Multihole Hip D Hemisphere Offset Shell Acetabular [id number] - Sna - [id number] Implanted:Qty : 1 on 08/05/2021 by Sue Oliver MD at [facility] Other - see comments Right: Hip [employer] [id number] 05/19/2031 [id number] / NA / [id number] Description:Implant pause pe rformed [employer] G7 40mm 2 Mobility Hip D Liner Acetabular Cocr [id number] - Sna - [id number] Implanted:Qty : 1 on 08/05/2021 by Sue Oliver MD at [facility] Other - see comments Right: Hip [employer] [id number] 06/15/2031 [id number] / NA / [id number] Description:Implant pause pe rformed [employer] Taperloc 140mm Type 1 Press Fit Reduce Hip 133d 10 High Offset 51-157537 - Sna - [id number] Implanted:Qty : 1 on 08/05/2021 by Sue Oliver MD at [facility] Other - see comments Right: Hip [employer] [id number] 10/04/2029 51-113692 / NA / [id number] Description:Implant pause pe rformed [employer] G7 Type 1 Hip -6mm Offset Taper Sleeve Centering Titanium Biolox 650-1064 - Sna - [id number] Implanted:Qty : 1 on 08/05/2021 by Sue Oliver MD at [facility] Other - see comments Right: Hip [employer] [id number] 08/06/2030 650-1064 / NA / [id number] Description:Implant pause pe rformed [employer] G7 28mm Hip Head Femoral Biolox Delta Biolox Option 650-1055 - Sna - [id number] Implanted:Qty : 1 on 08/05/2021 by Sue Oliver MD at [facility] Other - see comments Right: Hip [employer] [id number] 12/17/2030 650-1055 / NA / [id number] Description:Implant pause pe rformed [employer] [id number] 40mm 28mm Lumen Hip D Liner Acetabular Longevity Sterile Latex - Sna - [id number] Implanted:Qty : 1 on 08/05/2021 by Sue Oliver MD at [facility] Other - see comments Right: Hip [employer] [id number] 06/20/2024 [id number] / NA / [id number] Description:Implant pause pe rformed [employer] G7 40mm 2 Mobility Hip D Liner Acetabular Cocr [id number] - Sna - [id number] Implanted:Qty : 1 on 10/30/2021 by Sue Oliver MD at [facility] Other - see comments [employer] [id number] 07/10/2031 [id number] / NA / [id number] [employer] 40mm 28mm Lumen Hip D Liner Acetabular Longevity Sterile Latex [id number] - Sna - [id number] Implanted:Qty : 1 on 10/30/2021 by Sue Oliver MD at [facility] Other - see comments [employer] [id number] 02/27/2026 [id number] / NA / [id number] [employer] G7 28mm Type 1 Modular Hip Acetabular -3mm Offset Head Femoral 650-1159 - Sna - [id number] Implanted:Qty : 1 on 10/30/2021 by Sue Oliver MD at [facility] Other - see comments [employer] 650-1159 / NA / [employer] Taperloc 137mm Type 1 Press Fit Reduce Hip 133d 9 High Offset [id number] - Sna - [id number] Implanted:Qty : 1 on 10/30/2021 by Sue Oliver MD at [facility] Other - see comments [employer] 12/18/2030 [id number] / NA / [id number] [employer] G7 50mm Multihole Hip D Hemisphere Offset Shell Acetabular [id number] - Sna - [id number] Implanted:Qty : 1 on 10/30/2021 by Sue Oliver MD at [facility] Other - see comments [employer] [id number] 06/12/2031 [id number] / NA / [id number] Description:Implant pause pe rformed on all implants [employer] Trilogy 6.5mm 15mm Self Tap Screw Bone [id number] - Sna - [id number] Implanted:Qty : 1 on 08/05/2021 by Sue Oliver MD at [facility] Screw Right: Hip [employer] [id number] 10/24/2029 [id number] / NA / [id number] Description:Implant pause pe rformed [employer] Trilogy 6.5mm 20mm Self Tap Screw Bone [id number] - Sna - [id number] Implanted:Qty : 1 on 08/05/2021 by Sue Oliver MD at [facility] Screw Right: Hip [employer] [id number] 05/20/2031 [id number] / NA / [id number] Description:Implant pause pe rformed [employer] Trilogy 6.5mm 40mm Self Tap Hip Acetabular Cortical Screw Bone [id number] - Sna - [id number] Implanted:Qty : 1 on 10/30/2021 by Sue Oliver MD at [facility] Screw [employer] [id number] 08/28/2031 [id number] / NA / [id number] [employer] Trilogy 6.5mm 15mm Self Tap Screw Bone [id number] - Sna - [id number] Implanted:Qty : 1 on 10/30/2021 by Sue Oliver MD at [facility] Screw [employer] [id number] 07/27/2031 [id number] / NA / [id number] Procedures Procedure Name Priority Date/Time Associated Diagnosis Comments CT CHEST ABDOMEN PELVIS W CONTRAST Schedule Routine, Read Routine (OP Routine) 03/21/2024 9:52 AM CROWNING INSPECTOR Malignant neoplasm of left kidney (HCC) POCT CREATININE - DEVICE Routine 03/21/2024 9:26 AM CROWNING INSPECTOR SCREENING MAMMOGRAM BILATERAL W GERARD Schedule Routine, Read Routine (OP Routine) 06/02/2023 2:45 PM CDT Screening mammogram, encounter for PAP AND HIGH RISK HPV, REFLEX TO GENOTYPING Routine 12/23/2020 9:33 AM CDT Encounter for gynecological examination with abnormal finding Screening for cervical cancer SERUM HEPATITIS PANEL Routine 03/25/2014 2:16 PM CROWNING INSPECTOR from Last 3 Months or Most Recently Relevant to Health Maintenance Results * CT Chest Abdomen Pelvis W Contrast (03/21/2024 9:52 AM CROWNING INSPECTOR) Anatomical Region Laterality Modality Body N/A Computed Tomogra phy 03/21/2024 11:1 3 AM CROWNING INSPECTOR Impressions 03/21/2024 11:23 AM CROWNING INSPECTOR Single new lymph node in the left [...] Serenity Perez M.D. Narrative 03/21/2024 11:23 AM CROWNING INSPECTOR EXAMINATION: Computed tomography of the chest, abdomen [...] Result * POCT creatinine (03/21/2024 9:26 AM CROWNING INSPECTOR) Creatinine POC 0.9 0.6 - 1.1 mg/dL Blood 03/21/2024 9:26 AM CROWNING INSPECTOR 03/21/2024 9:26 AM CROWNING INSPECTOR us Self Referral LAB POCT ORDERABLES - DEVICE Fin al Result Performing Organization Address City/State/[facility] Co de Phone Number [facility] Department [place] [address] * Screening Mammogram Bilateral W Gerard (06/02/2023 2:45 PM CDT) Anatomical Region Laterality Modality Breast Bilateral Mammography Narrative 06/06/2023 2:09 PM CDT Mammogram Technique: Bilateral Digital Breast Tomosynthesis, Bilateral C-view 2D Screening mammogram. Views obtained: . Computer Aided Detection was performed. Mammogram Findings: The present examination has been compared to prior imaging studies performed at [facility] on 09/03/2015, 03/16/2017, 08/30/2018 and 09/11/2020. There [...] compared to prior imaging studies performed at [facility] on 09/03/2015, 03/16/2017,08/30/2018 and 09/11/2020. There are [...] AM CDT) CLINICAL INFORMATION: Routine exam Post[place] [facility] [place]/21/[address] [facility] Previous Pap INFORMATION NOT PROVIDED [facility] [place] Prev. Bx INFORMATION NOT PROVIDED [facility] [place] SOURCE: Cervix, Endocervix [facility] [place] Pap, specimen adequacy Satisfactory for evaluation. Endocervical/rojas sformation zone component present. [facility] [place] HPV interp Negative for intraepithelial lesion or malignancy. [facility] [place] Bobbin Cleaning Machine Operator LAURA, CT(ASCP) CT screening location: [place] [address] [place] [address] Comment [facility] [place] Comment: EXPLANATORY NOTE: The Pap is a [...] High Risk E6/E7 Not Detected NOT DETECTED [facility] Comment: Not Detected High Risk HPV types (16,18,31,33,35,39,45,51,52, 56,58,59,66,68) were not detected. Other HPV types which cause anogenital lesions may be present. The significance of the other types of HPV in malignant processes has not been established. Methodology: Real Time PCR Swab 12/23/2020 9:33 AM CDT 12/24/2020 7:59 AM CDT Glenna Shields NP LAB CYTOLOGY ORDERABLES Final Result [facility] [address] [place] [address] [facility] [address] [place] [address] * Serum Hepatitis panel (03/25/2014 2:16 PM CROWNING INSPECTOR) HCV ab Negative NEG HISTORICAL RESULTS Comment: Interpretive Data If confirmation is required, call Laboratory Customer Service to request sample to be sent to [facility] for Hepatitis C Virus (HCV) RNA Detection and Quantitation by Real-Time Reverse Working Second Hand-PCR (RT-PCR). Current interpretive data was last revised [...] HISTO RICAL RESULTS Serum 03/25/2014 2:16 PM CROWNING INSPECTOR us Azar Benson MD LAB BLOOD ORDERABLES [place] l Result HISTORICAL RESULTS from Last 3 Months or Most Recently Relevant to Health Maintenance Insurance [facility] [place] Advance Directives For more information, please contact: [phone] * Full Code (Latest Code Status on File) Date Activated Date Inactivated Comments 10/30/2021 10:36 AM 10/31/2021 5:43 PM * Full Code Date Activated Date Inactivated Comments 08/05/2021 11:43 AM 08/06/2021 2:54 PM * Full Code Date Activated Date Inactivated Comments 03/27/2021 3:04 PM 03/28/2021 7:12 PM * Full Code Date Activated Date Inactivated Comments 09/04/2019 8:47 PM 09/07/2019 7:14 PM Care Teams Director Energy Relationship Specialty Start Date End Date Dacia Tan MD [address] [address] PCP - General Internal Medicine 05/05/21 Zachary Kwon MD Consulting Physician Urology 03/28/21 Satish Pedroza MD [address] [facility] [place] [address] Consulting Physician Pain Management 12/14/22
--- OUTSIDE RECORDS SUMMARY | 2024-06-14 12:00 | XMS_ITS | CONTINUITY OF CARE DOCUMENT ---
Author Name shaquille corbin Address Unknown Organization [facility] Office Address [address] [place] [address] [address] [place] [address] Phone [phone] Care Team Providers Care Clinical Trial Data Manager Name Role Phone Lino DICK, [place] Unavailable [phone] BENNY DUKE MD Unavailable PROBLEMS Condition Status Date Provider Notes Cardiovascular screening active [place] INSURANCE PROVIDERS Payer name Policy type / Coverage type [place] red libertarian ID [employer] Commercial insurance company [id number] TREATMENT PLAN Date Name CT, Coronary Calcium Score HISTORY OF PROCEDURES Procedure Date Procedure Name Provider Procedure Notes S tatus CT- Coronary CA score [place] Huynh MD completed
--- OUTSIDE RECORDS SUMMARY | 2024-06-14 12:03 | XMS_ITS | Clinical Summary ---
Author Organization [facility] Address [address] [place] [address] Care Team Providers Care Sand Cutting Machine Operator Name Role Phone Unavailable Primary Care Provider Unavailabl e Source Comments [facility],non-owned Affiliates and Associated Physician Practices is amultiple site organization consisting of ambulatory clinics and hospital sitesin [place], [place], [place] and [place]. This disclosure is being madepursuant to the Care Everywhere program and may not contain all information available regarding this patient. Last updated 17.[facility] [employer] Allergies Active Allergy Reactions Criticality Noted Date Comments Codeine Itching Low 07/26/2019 Hydrocodone Itching 09/16/2014 Oxycodone Itching Low 07/15/2021 Tramadol Itching 09/16/2014 Medications * Be aware that medications may not be up to date on this document. Alwaysverify current medications with the patient. ESTRACE VAGINAL 0.1 MG/GM vaginal cream as needed 4 09/14/19 15 Active indomethacin (INDOCIN) 50 MG capsule as needed 5 05/22/19 15 Active PROMETHEGAN 25 MG suppository as needed 5 05/23/19 15 Active dicyclomine (BENTYL) 10 MG capsule 0 04/20/19 17 Active DULoxetine (CYMBALTA) 60 MG capsule 30 mg at bedtime 1 03/09/19 17 Active gabapentin (NEURONTIN) 300 MG capsule 2 times daily 11 04/20/19 17 Active cyanocobalamin (VITAMIN B-12) injection by Intravenous route every 30 days 08/31/19 17 Active albuterol HFA (PROVENTIL;VENTOLIN ;PROAIR) 108 (90 BASE) MCG/ACT inhalerIndications: Acute bronchitis, unspecified organism Inhale 2 puffs by mouth every 4 hours as needed for Shortness of Breath, Wheezing or Cough 1 Inhaler 12/23/19 18 Active fluticasone propionate (FLONASE) 50 MCG/ACT nasal spray INHALE 2 SPRAYS INTO EACH NOSTRIL ONCE DAILY 08/31/19 13 Active acetaminophen (TYLENOL) 325 MG tablet Take 1 (one) tablet by mouth every 6 hours as needed for Fever or Pain Maximum allowable Acetaminophen amount = 4 Grams (4000 mg) / 24 hours. Active epinastine (ELESTAT) 0.05 % ophthalmic solution INT 1 GTT INTO OU QD 07/22/19 19 Active ketotifen (ZADITOR) 0.025 % ophthalmic solution Active tiZANidine (ZANAFLEX) 4 MG tablet TAKE 1 TABLET BY MOUTH EVERY NIGHT NEEDED FOR MUSCLE SPASMS 30 tablet 11/16/19 19 Active cycloSPORINE (Restasis) 0.05 % ophthalmic suspension Instill 1 (one) drop into both eyes 2 times daily 01/28/20 24 Active iron polysaccharides (Niferex 150) 150 MG capsule Take 1 (one) capsule by mouth once daily 100 capsule 1 04/12/19 25 Active amphetamine-dextroa mphetamine (Adderall) 10 MG tablet TAKE 1 TABLET BY MOUTH IN THE AFTERNOON NEEDED Active atenolol (Tenormin) 25 MG tablet Take 1 (one) tablet by mouth once daily 03/19/19 25 Active pramipexole (Mirapex) 1 MG tablet TAKE 1/2 TABLET BY MOUTH DAILY AT 3:00 TO 4:00 PM AND 1 TABLET AT NIGHT 03/22/19 25 Active HYDROcodone-acetami nophen (Julian) 5-325 MG tabletIndications:H istory of kidney cancer Take 1 (one) tablet by mouth every 6 hours as needed for Pain 12 tablet 05/02/19 25 Active diphenhydrAMINE (Benadryl) 50 MG capsule Take 1 (one) capsule by mouth every 6 hours as needed for Itching 05/02/19 25 Active senna (Senokot) 8.6 MG tablet Take 1 (one) tablet by mouth once daily 7 tablet 05/02/19 25 Active polyethylene glycol 3350 (Miralax) 17 GM/SCOOP powder Take 17 (seventeen) g by mouth once daily 119 g 05/02/19 25 Active Active Problems Problem Noted Date Diagnosed Date History of kidney cancer 04/30/2024 Encounters Date Type Department Care Team Description 05/16/2024 Travel 05/11/2024 8:45 AM CDT Office Visit [facility] - Urology [address] [place] [address] [address] [place] [address] Maximilian Christy MD Personal history of kidney cancer (Primary Dx) 05/11/2024 Travel 04/30/2024 7:22 AM CDT Anesthesia Event [facility] [address] [place] [address] Bar Soto MD Garcia, Alec, MD 04/30/2024 7:00 AM CDT - 04/30/2024 10:49 AM CDT Surgery [facility] [address] [place] [address] Maximilian Christy MD Robotic excision of retroperitoneal mass, intraoperative ultrasound 04/30/2024 5:23 AM CDT - 05/01/2024 2:00 PM CDT Hospital Encounter [facility] ACUTE [address] [place] [address] Maximilian Christy MD Surgery General Discharge Disposition: Home or Self Care 04/30/2024 Travel 04/20/2024 11:00 AM SUBSTATION OPERATOR - 04/20/2024 11:59 PM SUBSTATION OPERATOR Hospital Encounter [facility] OP DRAW STATION [address] [place] [address] Discharge Disposition: Home or Self Care 04/20/2024 10:30 AM SUBSTATION OPERATOR - 04/20/2024 10:59 AM [facility] Hospital Encounter [facility] PAT [address] [place] [address] Maximilian Christy MD Urology Discharge Disposition: Home or Self Care 04/20/2024 Travel 04/16/2024 Orders Only [facility] - [facility]rology [address] [facility] [place] [address] Steph Bhatt LPN Personal history of kidney cancer ; Pre-op testing 04/16/2024 Telephone [facility] [address] [facility] [place] [address] Maximilian Christy MD Surgery Scheduling 04/13/2024 11:00 AM SUBSTATION OPERATOR Office Visit [facility] Urology [address] [place] [address] [address] [place] [address] Maximilian Christy MD Personal history of kidney cancer (Primary Dx) 04/13/2024 Travel 04/11/[address] [place] [address] Missy Buckley MD MEDICATION REFILL 04/09/2024 2:00 PM SUBSTATION OPERATOR Office Visit [address] [place] [address] Missy Buckley MD Renal cancer, left (Primary Dx) 04/09/2024 11:02 AM SUBSTATION OPERATOR - 04/09/2024 11:59 PM SUBSTATION OPERATOR Hospital Encounter [facility] - PET Scan [address] [place] [address] [address] [place] [address] Dacia Tan MD Internal Medicine Discharge Disposition: Home or Self Care 04/09/2024 Travel from Last 3 Months Family History Medical History Relation Name Comments Leukemia Daughter passed Alzheimer's Disease Mother Cancer - Breast Mother Relation Name Status Comments Brother Alive x1 Daughter Father Mother Alive Social History Tobacco Use Types Packs/Day Years Used Date Smoking Tobacco: Never Smokeless Tobacco: Never Tobacco Cessation:Counseling Given: Not Answered Alcohol Use Standard Drinks/Week Comments No 0 (1 standard drink = 0.6 oz pur e alcohol) AUDIT-C Answer Date Recorded Q1: How often do you have a drink containing alcohol? Never 04/30/2024 Q2: How many drinks containi ng alcohol do you have on a typical day when you are drinking? Patient does not drink Q3: How often do you have si x or more drinks on one occasion? Never 04/30/2024 PHQ-2 Answer Date Recorded Patient Health Questionnaire-2 Score 0 04/09/2024 Comments No Sex and Gender Information Value Date Recorded Sex Assigned at Female 04/16/2024 2:23 PM SUBSTATION OPERATOR Legal Sex Female 6:08 AM SUBSTATION OPERATOR Gender Identity Female 04/16/2024 2:23 PM SUBSTATION OPERATOR Sexual Orientation Straight 04/16/2024 2: 23 PM SUBSTATION OPERATOR Last Filed Vital Signs Vital Sign Reading Time Taken Comments Blood Pressure 126/75 05/11/2024 8:17 AM CDT Pulse 95 05/11/2024 8:17 AM CDT Temperature 36.7 C (98.1 F) 05/11/2024 8:17 AM CDT Respiratory Rate 18 05/11/2024 8:17 AM CDT Oxygen Saturation 96% 05/11/2024 8:17 AM CDT Inhaled Oxygen Concentration - - Weight 74.4 kg (164 lb) 05/11/2024 8:17 AM CDT Height 165.1 cm (5' 5 ) 05/11/2024 8:17 AM CDT Body Mass Index 27.29 05/11/2024 8:17 AM CDT Plan of Treatment Upcoming Encounters Date Type Department Care Team (Late st Contact Info) Description 08/10/2024 1:00 PM CDT Appointment [facility] Health Imaging Services - CT Scan [address] [place] [address] 08/10/2024 2:00 PM CDT Office Visit [facility] - [facility]rology [address] [facility] [address] [place] [address] Maximilian Christy MD [address] [place] [address] Health Maintenance Due Date Last Done Comments COLOGUARD (AGES 45-75) - COLON CA SCREENING [address] COLONOGRAPHY - COLON CA SCREENING 1961 FIT - COLON CA SCREENING 1961 FLEX SIG - COLON CA SCREENING 1961 PAP SMEAR 1961 HIV SCREENING 1976 DTAP/TDAP/TD VACCINES (1 - Tdap) 1980 PNEUMOCOCCAL VACCINE 50+ (1 of 2 - PCV) 1980 ZOSTER VACCINE (1 of 2) 1980 Respiratory Syncytial Virus (RSV) Vaccine Pt: or over 60 yrs (1 - Risk 60-74 years 1-dose series) 2021 COVID-19 VACCINE (5 - season) 2023 03/24/2022, 07/29/2021, 03/27/2020, Additional history exists MAMMOGRAM 06/01/2025 06/02/2023, 05/22, 09/11/2020, Additional history exists SCREENING FOR DIABETES 05/02/2027 05/01/2024, 2024 LIPID TESTING 12/04/2028 12/05/2023, 11/19/2022 COLONOSCOPY - COLON CA SCREENING 11/04/2032 11/04/2022 Colorectal Cancer Screening 11/04/2032 HEPATITIS C SCREENING Completed 12/05/2023 INFLUENZA VACCINE Completed 12/05/2023, , 11/17/2021, Additional history exists DEPRESSION SCREENING Completed 04/09/2024 HEPATITIS B VACCINE Aged Out No longe r eligible based on patient's age to complete this topic HIB VACCINE Aged Out No longer eligi ble based on patient's age to complete this topic HPV VACCINE Aged Out No longer eligi ble based on patient's age to complete this topic MENINGOCOCCAL (Group B) VACCINE SHARED DECISION-MAKING Aged Out No longer eligible based on patient's age to complete this topic MENINGOCOCCAL GROUPS A/C/Y/W VACCINE Aged Out No longer eligible based on patient's age to complete this topic Medical Devices Implanted Type Area Portfolio Architect Device Identifier Shelf Expiration Date Model / Serial / Lot Slnt Tiss Clsr Vistaseal Fbrn 10ml Frz - [id number] Implanted:Qty: 1 on 04/30/2024 by Maximilian Christy MD at [facility] Left: Abdomen [employer] 11/07/2025 VST10 / [id number] / [id number] Procedures Procedure Name Priority Date/Time Associated Diagnosis Comments HEMOGLOBIN Timed 05/01/2024 11:53 AM CDT History of kidney cancer PREPARE RBC LEUKOREDUCED UNIT Routine 05/01/2024 7:45 AM CDT CBC W/O DIFFERENTIAL Routine 05/01/2024 5:41 AM CDT BASIC METABOLIC PANEL (CALCIUM TOTAL) Routine 05/01/2024 5:41 AM CDT PATHOLOGY TISSUE Routine 04/30/2024 10:3 9 AM CDT Personal history of kidney cancer PERIPHERAL IV NOTE Routine 04/30/2024 8: 10 AM CDT ENDOTRACHEAL TUBE NOTE Routine 04/30/2024 8:09 AM CDT ARTERIAL LINE NOTE Routine 04/30/2024 8: 09 AM CDT GA ULTRASONIC GUIDANCE INTRAOPERATIVE 04/30/2024 6:54 AM CDT Personal history of kidney cancer Case Notes Reviewed SM 04/29 / Pre-admit date: 04/30/2024 [id number] + SCREEN PANEL JEAN-CLAUDE 04/30/2024 6 :05 AM CDT CULTURE URINE Routine 04/20/2024 11:33 AM SUBSTATION OPERATOR Personal history of kidney cancer Pre-op testing TYPE + SCREEN PANEL Routine 04/20/2024 1 1:28 AM SUBSTATION OPERATOR Preop testing IRON + TIBC + FERRITIN Routine 04/09/2024 4:29 PM SUBSTATION OPERATOR Renal cancer, left LDH BLOOD Routine 04/09/2024 4:29 PM SUBSTATION OPERATOR Renal cancer, left COMPREHENSIVE METABOLIC PANEL Routine 04/09/2024 4:29 PM SUBSTATION OPERATOR Renal cancer, left CBC W AUTO DIFFERENTIAL (CANCER CARE) Routine 04/09/2024 2:55 PM SUBSTATION OPERATOR Renal cancer, left PET CT SKULL TO MID THIGH Routine 04/09/2024 12:05 PM SUBSTATION OPERATOR Other specified disorders of kidney and ureter from Last 3 Months Results * (ABNORMAL) HEMOGLOBIN (05/01/2024 11:53 AM CDT) [facility] Hemoglobin 10.1(L) 11.9 - 15.8 g/dL 05/01/2024 12:03 PM CDT [facility] Blood BLOOD SPECIMEN / Unknown Lab Venipuncture / Unknown 05/01/2024 11:53 AM CDT 05/01/2024 11:57 AM CDT Eli JORDAN LAB - HEMATOLOGY ORDERA BLES Final Result [address] [address], [facility] [phone] * PREPARE (CROSSMATCH) RBC UNIT(S), 2 Units (05/01/2024 7:45 AM CDT) [facility] Unit Description AS1 LR PRBC [facility] Unit ABO O [facility] Unit Rh NEG [facility] Product Number R02 [facility] Unit Donor # [id number] [facility] Unit Status released [facility] Product Code [id number] [facility] Blood Type Barcode 9500 [facility] Expiration Date [id number] S [facility] Unit Description AS1 LR PRBC [facility] Unit ABO O [facility] Unit Rh NEG [facility] Product Number R02 [facility] Unit Donor # [id number] [facility] Unit Status released [facility] Product Code [id number] [facility] OD [facility] Blood Type Barcode 9500 [facility] Expiration Date [id number] S [facility]OD [facility]ANK LAB Blood Bank BLOOD SPECIMEN / Unknown 04/30/2024 6:19 AM CDT Eli MCKEONBIOLOGICAL LAB TECHNICIAN LAB - BLOOD BANK ORDERA BLES Final Result [facility] [address] [place] [address], [facility] [phone] * (ABNORMAL) CBC W/O DIFFERENTIAL (05/01/2024 5:41 AM CDT) [facility] WBC 5.6 4.0 - 10.7 x10E9/L 05/01/2024 6:02 AM [facility] RBC Count 3.49(L) 3.90 - 5.20 x10E12/L 05/01/2024 6:02 AM [facility] Hemoglobin 10.5(L) 11.9 - 15.8 g/dL 05/01/2024 6:02 AM [facility] Hematocrit 32.3(L) 34.8 - 46.1 % 05/01/2024 6:02 AM [facility] MCV 92.6 80.0 - 98.0 fL 05/01/2024 6:02 AM [facility] MCH 30.1 26.7 - 33.6 pg 05/01/2024 6:02 AM [facility] MCHC 32.5 31.7 - 36.3 g/dL 05/01/2024 6:02 AM [facility] RDW-CV 13.6 11.3 - 14.8 % 05/01/2024 6:02 AM [facility] Platelet Count 340 150 - 420 x10E9/L 05/01/2024 6:02 AM [facility] MPV 9.2 7.8 - 11.4 fL 05/01/2024 6:02 AM [facility] Blood BLOOD SPECIMEN / Unknown Lab Venipuncture / Unknown 05/01/2024 5:41 AM CDT 05/01/2024 5:58 AM CDT us Maximilian Christy MD LAB - HEMATOLOGY ORDERABLE S Final Result [facility] [address] [place] [address], [facility] [phone] * (ABNORMAL) BASIC METABOLIC PANEL (CALCIUM TOTAL) (05/01/2024 5:41 AM CDT) BUN 14 7 - 26 mg/dL 05/01/2024 6:24 AM [facility] Creatinine 0.86 0.56 - 0.96 mg/dL 05/01/2024 6:24 AM [facility] Sodium 140 136 - 145 mmol/L 05/01/2024 6:24 AM [facility] Potassium 4.0 3.5 - 4.5 mmol/L 05/01/2024 6:24 AM [facility] Chloride 110(H) 98 - 107 mmol/L 05/01/2024 6:24 AM [facility] CO2 25 22 - 29 mmol/L 05/01/2024 6:24 AM [facility] Glucose 92 70 - 99 mg/dL 05/01/2024 6:24 AM [facility] Calcium 8.0(L) 8.4 - 10.2 mg/dL 05/01/2024 6:24 AM [facility] Anion Gap 5(L) 6 - 16 05/01/2024 6:24 AM [facility] BUN/Creatinine Ratio 16 7 - 23 05/01/2024 6:24 AM [facility] Osmolality Calculated 290 275 - 295 mOsm/kg 05/01/2024 6:24 AM [facility] eGFR by CKD-EPI 76(L) >=90 mL/min/1.7 3 m2 05/01/2024 6:24 AM [facility] Blood BLOOD SPECIMEN / Unknown Lab Venipuncture / Unknown 05/01/2024 5:41 AM CDT 05/01/2024 5:56 AM CDT Maximilian Christy MD LAB - CHEMISTRY ORDERABLES Final Result [facility] [address] [place] [address], [facility] [phone] * PATHOLOGY TISSUE (04/30/2024 10:39 AM CDT) Case Report Surgical Pathology Report Case: [id number] Authorizing Provider: Maximilian Chrsity MD Collected: 04/30/2024 10:39 AM Ordering Location: [facility] OP Received: 04/30/2024 12:51 PM Pathologist: Maddie Lott MD Specimen: Soft Tissue Mass, ellie- aortic mass 05/01/2024 3:17 PM [facility] Final Diagnosis Lymph nodes, periaortic mass, excision (A): - Metastatic renal cell carcinoma involving at least one lymph node 05/01/2024 3:17 PM [facility] Microscopic Description and Comment Sections show multiple lymph node sections, containing papillary fragments of epithelioid cells with abundant eosinophilic cytoplasm and pleomorphic nuclei with prominent nucleoli. Lesional cells are diffusely positive for PAX8 and negative for CK7, consistent with a renal cell carcinoma. It is unclear from the gross description how many individual lymph nodes were resected. 05/01/2024 3:17 PM [facility] Clinical History The patient is a 63-year-old woman status post robotic left radical nephrectomy 03/2021, pT2a papillary RCC. Follow up imaging negative until 02/2024 when a new mass was noted in the left nephrectomy bed, ~2cm, and this was confirmed as positive on a PET 03/2024. 05/01/2024 3:17 PM [facility] Gross Description The requisition and specimen(s) are identified with the patient's name, Amira Selby. Received in formalin, specimen A , is a 5.0 x 2.2 x 1.7 cm excision of red-brown, roughened soft tissue with still-yellow, lobulated adipose tissue. Also received in the container is a separate 2.3 x 1.5 x 1.3 cm ovoid collection of light brown fibers, consistent with suture, with hemorrhage. The outer portion of the soft tissue is inked blue. Sectioning shows a 1.4 x 1.1 x 0.3 cm still-white, firm, rubbery area embedded with numerous surgical jalen the remainder of the cut surface consists of unremarkable pink-red soft tissue with still-yellow, firm areas. The soft tissue is entirely submitted as cassettes A1-A4 and a section of the fibrous area with presumed suture in A5. AL 05/01/2024 3:17 PM CDT [facility] Pathologist Location at [facility] 05/01/2024 3:17 PM CDT [facility] Disclaimer The performance characteristics of all immunohistochemical and indirect immunofluorescence stains (if any) cited in this report were determined by the Histopathology Laboratory of [facility]. Some of these tests were developed by our own laboratory and have not been cleared or approved by the US Food and Drug Administration. The FDA does not require this test to go through premarket FDA review. These tests are used for clinical purposes. They should not be regarded as investigational or for research. This laboratory is certified under the Clinical Laboratory Improvement Amendments (CLIA) as qualified to perform high complexity clinical laboratory testing. This case has been personally reviewed and interpreted by the attending (teaching) pathologist. 05/01/2024 3:17 PM CDT [facility] Embedded Images 05/01/2024 3:17 PM CDT [facility] Biopsy, Excision SOFT TISSUE MASS / Unknown 04/30/2024 10:39 AM CDT 04/30/2024 12:51 PM CDT Comment:Pre-op diagnosis: Personal history of kidney cancer Maximilian Christy MD LAB - PATHOLOGY/CYTOLOGY O RDERAADONIS Final Result [facility] [address] [place] [address], [facility] [phone] * IV PLACEMENT PERFORMABLE (04/30/2024 8:10 AM CDT) Narrative Shravan Santoyo MD - 04/30/2024 8:10 AM CDT Shravan Santoyo MD 04/30/2024 8:10 AM Peripheral IV Line Placement: Patient Location: OR Insertion Time: 04/30/2024 7:35 AM Procedure: IV start ([id number]) Procedure Section: Skin Prep: alcohol. Orientation: left Location: hand Local Anesthetic Used? No Catheter Gauge: 18 Number of Attempts: 1. Procedure Tolerance: performed while patient under general anesthesia. Staff Section Anesthesia Provider: Bar Soto MD, Performed the procedure Bar Soto MD GENERAL ANESTHESIA ORDER RIKA Final Result * ETT LINE PERFORMABLE (04/30/2024 8:09 AM CDT) Shravan Holcomb MD - 04/30/2024 8:09 AM CDT Shravan Santoyo MD 04/30/2024 8:09 AM Endotracheal Tube Placement: Patient Location: OR. Intubation Event Date/Time: 04/30/2024 7:36 AM Procedure: intubation ([id number]) Procedure Section: Sedation: under general anesthesia. Indications for Airway Management: anesthesia Procedure pretreatments used? No Induction: standard IV Patient Position: sniffing Mask Ventilation: easy. Blade Type: Leija Blade Size: 2 Laryngoscopy View: grade 1 (full cords) Intubation Adjuncts: stylet Tube: endotracheal tube Placement: oral Tube type: cuff - inflated Tube Size (MM): 7 Depth of Insertion (CM): 21 Measured From: lips Cuff inflation pressure (CM H20): 20 Cuff Inflated With: air Number of Attempts: 1. Placement Verified By: direct visualization, bilateral breath sounds, chest auscultation and CO2 monitor Tube secured with: adhesive tape. Dentition unchanged? Yes Difficult Airway? No. Procedure Start Time: 04/30/2024 7:36 AM. Staff Section Anesthesia Provider: Shravan Santoyo MD, Performed the procedure Provider #1: Bar Soto MD. Bar Soto MD GENERAL ANESTHESIA ORDER RIKA Final Result * ARTERIAL LINE PERFORMABLE (04/30/2024 8:09 AM CDT) Shravan Holcomb MD - 04/30/2024 8:09 AM CDT Shravan Santoyo MD 04/30/2024 8:09 AM Arterial Line Placement Procedure Note Patient Location: OR. Insertion Time: 04/30/2024 7:40 AM Procedure: Arterial Line ([id number]) Procedure Section Indications: continuous blood pressure monitoring. Consent: informed consent was obtained for the procedure. Skin Prep: Chloraprep. Orientation: Right. Site: radial. Site Identification: palpation. Gauge: 20. Seldinger Technique Used? Yes Number of Attempts: 1. Line Secured with: tape and Tegaderm. Procedure Tolerance: performed while patient under general anesthesia. Events: none. Patient Sedated? Yes Local Anesthetic Used? No Sedation Types: general anesthesia Staff Section Anesthesia Provider: Shravan Santoyo MD, Performed the procedure Bar Soto MD GENERAL ANESTHESIA ORDER RIKA Final Result * TYPE + SCREEN PANEL (04/30/2024 6:05 AM CDT) Only the most recent of2 resultswithin the time period is included. Pathologist [facility] Antibody Screen NEG 7:04 AM CDT [facility] ABO Rh O NEG 04/30/2024 7:04 AM CDT [facility] Blood Bank BLOOD SPECIMEN / Unknown Venipuncture / Unknown 04/30/2024 6:05 AM CDT 04/30/2024 6:19 AM CDT Eli Hunt APRN-BIOLOGICAL LAB TECHNICIAN LAB - BLOOD BANK ORDERA BLES Final Result Performing Organization Address City/[facility]/ZIP Co de Phone Number [facility] [address] [place] [address], [place] [phone] * CULTURE URINE (04/20/2024 11:33 AM SUBSTATION OPERATOR) [facility] Culture Urine 10,000-50,000 CFU/mL urogenital kay CASANDRA 04/22/2024 2:27 AM SUBSTATION OPERATOR [facility]CRO[facility] Urine URINE SPECIMEN OBTAINED BY CLEAN CATCH PROCEDURE / Unknown Collection / Unknown 04/20/2024 11:33 AM SUBSTATION OPERATOR 04/20/2024 11:45 AM SUBSTATION OPERATOR us Maximilian Christy MD LAB - MICROBIOLOGY ORDERAB LES Final Result [facility] [address] [place] [address], [facility] [phone] * IRON + TIBC + FERRITIN (04/09/2024 4:29 PM SUBSTATION OPERATOR) Pathologist [facility] TIBC 297 250 - 450 ug/dL [facility] ACCOUNT BILL UIBC 192 118 - 369 ug/dL [facility] ACCOUNT BILL Iron 105 27 - 139 ug/dL [facility] ACCOUNT BILL Iron Saturation 35 15 - 55 % [facility] ACCOUNT BILL Ferritin 57 15 - 150 ng/mL [facility] ACCOUNT BILL Blood BLOOD SPECIMEN / Unknown 04/09/2024 4:29 PM SUBSTATION OPERATOR 04/09/2024 Comment:Blood Release to pat i Jaron [facility] ACCOUNT BILL - 04/10/2024 12:36 PM SUBSTATION OPERATOR Performed at: [address] [id number] [employer] Material: Dean Holder PhD, Phone: [phone] us Missy Buckley MD LAB - CHEMISTRY ORDERABLES Fin al Result [facility] ACCOUNT BILL [address] [place] [address] * (ABNORMAL) COMPREHENSIVE METABOLIC PANEL (04/09/2024 4:29 PM SUBSTATION OPERATOR) Glucose 86 70 - 99 mg/dL [facility] ACCOUNT BILL BUN 23 7 - 26 mg/dL [facility] ACCOUNT BILL Creatinine 0.80 0.57 - 1.11 mg/dL [facility] ACCOUNT BILL eGFR by CKD-EPI 83(L) >=90 mL/min/1.7 3 m2 [facility] ACCOUNT BILL Sodium 143 136 - 145 mmol/L [facility] ACCOUNT BILL Potassium 4.3 3.5 - 5.1 mmol/L [facility] ACCOUNT BILL Chloride 108(H) 98 - 107 mmol/L [facility] ACCOUNT BILL CO2 28 22 - 29 mmol/L [facility] ACCOUNT BILL Calcium 8.9 8.4 - 10.4 mg/dL [facility] ACCOUNT BILL Protein Total 6.4 6.4 - 8.3 gm/dL [facility] ACCOUNT BILL Albumin 3.5 3.4 - 5.0 gm/dL [facility] ACCOUNT BILL Bilirubin Total 0.4 0.2 - 1.2 mg/dL [facility] ACCOUNT BILL Alkaline Phosphatase 92 40 - 150 U/L [facility] ACCOUNT BILL AST 23 5 - 34 U/L [facility] ACCOUNT BILL ALT 18 0 - 55 U/L [facility] ACCOUNT BILL Blood BLOOD SPECIMEN / Unknown 04/09/2024 4:29 PM SUBSTATION OPERATOR 04/09/2024 Comment:Blood Release to pat i Narrative [facility] ACCOUNT BILL - 04/09/2024 8:35 PM SUBSTATION OPERATOR Performed at: [address] [place] [address] [id number] [employer] Material: [address], Phone: [phone] Missy Buckley MD LAB - CHEMISTRY ORDERABLES Fin al Result Performing Organization Address City[facility]/ZIP Co de Phone Number [facility] ACCOUNT BILL [address] [place] [address] * LDH BLOOD (04/09/2024 4:29 PM SUBSTATION OPERATOR) [facility] LDH 219 125 - 220 U/L [facility] ACCOUNT BILL Blood BLOOD SPECIMEN / Unknown 04/09/2024 4:29 PM SUBSTATION OPERATOR 04/09/2024 Comment:Blood Release to [facility] i Narrative [facility] ACCOUNT BILL - 04/09/2024 8:35 PM SUBSTATION OPERATOR Performed at: [address] [place] [address] [id number] [employer] Material: [address], Phone: [phone] Missy Buckley MD LAB - CHEMISTRY ORDERABLES Fin al Result Performing Organization Address [facility] de Phone Number [facility] ACCOUNT BILL [address] [place] [address] * (ABNORMAL) CBC W AUTO DIFFERENTIAL (CANCER CARE) (04/09/2024 2:55 PM SUBSTATION OPERATOR) [facility] WBC 3.8(L) 4.4 - 10.7 x10E9/L 04/09/2024 3:01 PM SUBSTATION OPERATOR [facility] Neutrophils % 46.3 44.0 - 73.0 % 04/09/2024 3:01 PM SUBSTATION OPERATOR [facility] Lymphocytes % 43.5(H) 20.0 - 43.0 % 04/09/2024 3:01 PM SUBSTATION OPERATOR [facility] Monocytes % 7.0 5.0 - 13.0 % 04/09/2024 3:01 PM SUBSTATION OPERATOR [facility] Eosinophils % 2.9 0.0 - 6.0 % 04/09/2024 3:[address] [facility] Basophils % 0.3 0.0 - 2.0 % 04/09/2024 3:[address] [facility] Neutrophil Absolute 1.78(L) 2.01 - 7.14 x10E9/L 04/09/2024 3:[address] [facility] Lymphocytes Absolute 1.67 1.07 - 3.94 x10E9/L 04/09/2024 3:[address] [facility] Monocytes Absolute 0.27 0.26 - 1.07 x10E9/L 04/09/2024 3:[address] [facility] Eosinophils Absolute 0.11 0 - 0.47 x10E9/L 04/09/2024 3:[address] [facility] Basophils Absolute 0.01 0 - 0.08 x10E9/L 04/09/2024 3:[address] [facility] RBC 4.17 3.80 - 5.20 x10E12/L 04/09/2024 3:[address] [facility] Hemoglobin 12.6 12.0 - 15.6 gm/dL 04/09/2024 3:[address] [facility] Hematocrit 39.7 35.9 - 45.5 % 04/09/2024 3:[address] [facility] MCV 95.2 80.7 - 98.3 fl 04/09/2024 3:[address] [facility] MCH 30.2 26.7 - 34.0 pg 04/09/2024 3:01 PM [facility] MCHC 31.7 30.8 - 35.9 gm/dL 04/09/2024 3:[address] [facility] RDW-CV 12.7 12.1 - 14.9 % 04/09/2024 3:[address] [facility] Platelet Count 459(H) 153 - 416 x10E9/L 04/09/2024 3:01 PM SUBSTATION OPERATOR [facility] MPV 8.7(L) 9.4 - 12.9 fl 04/09/2024 3:[address] [facility] Blood BLOOD SPECIMEN / Unknown 04/09/2024 2:55 PM SUBSTATION OPERATOR 04/09/2024 2:55 PM SUBSTATION OPERATOR us Missy Buckley MD LAB - HEMATOLOGY ORDERABLES Fi nal Result [facility] [address] [address] * PET CT Skull To Mid Thigh (04/09/2024 12:05 PM SUBSTATION OPERATOR) Anatomical Region Laterality Modality Head, Lower Extremity Nuclear Me dicine 04/09/2024 1:00 PM SUBSTATION OPERATOR Impressions 04/09/2024 1:17 PM SUBSTATION OPERATOR IMPRESSION: 1. Moderately FDG avid left para-aortic lymph node in the left nephrectomy bed is concerning for metastasis given the history of renal cell carcinoma. 2. No additional FDG avid abdominopelvic lymph nodes or evidence of distant metastatic disease. > Interpreting Provider: Roberto Moreira DO on 04/09/2024 1:17 PM Narrative 04/09/2024 1:17 PM SUBSTATION OPERATOR PROCEDURE: PET CT SKULL TO MID THIGH DATE/TIME OF EXAM: 04/09/2024 12:05 PM CLINICAL INFORMATION: None relevant/not provided if blank. Indication: N28.89: Other specified disorders of kidney and ureter COMPARISON: None. Referring provider: Dacia Tan HISTORY: 63-year-old with a history of renal cell carcinoma status post left nephrectomy in 2021 presenting with a suspicious lymph node in the resection bed. Evaluate for initial treatment strategy. TECHNIQUE: 8.59 mCi of F-18 FDG by IV in the left antecubital fossa. PET/CT image acquisition from the base of the skull to upper thighs after approximately [address] minutes [address] with a [address] being low dose, noncontrast. No separate report for the CT was generated since it was used for attenuation correction and anatomic localization. Blood glucose level of the time of injection was 95 mg/dl. FINDINGS: For reference, SUV max of liver is 3.8. HEAD AND NECK: There is no abnormal FDG uptake. CHEST: Minimal bibasilar atelectasis. The lungs are otherwise clear with no evidence of pneumothorax or pleural effusion. No abnormal FDG avid mediastinal nodes. Benign-appearing bilateral axillary nodes. ABDOMEN AND PELVIS: The left kidney has been resected. There is a 1.7 x 1.2 cm left para-aortic lymph node near the resection bed with SUV Max 3.8, concerning for metastasis. No other FDG avid abdominal or pelvic lymph nodes are identified. The gallbladder has been surgically resected. A cyst is noted in the right kidney with photopenia on PET. The liver, adrenal glands, spleen and pancreas are grossly unremarkable. Heterogeneous FDG uptake throughout the bowel, normal variant. Diverticulosis without evidence of diverticulitis. Benign-appearing bilateral inguinal nodes. Mild atherosclerotic calcifications within the aorta and iliac arteries. MUSCULOSKELETAL: Bilateral hip arthroplasties are noted. Degenerative changes throughout the spine. No FDG avid lytic or blastic lesion is identified. There is no abnormal FDG avid lesion. Procedure Note Roberto Moreira, DO - 04/09/2024 PROCEDURE: PET CT SKULL TO MID THIGH DATE/TIME OF EXAM: 04/09/2024 12:05 PM CLINICAL INFORMATION: None relevant/not provided if blank. Indication: N28.89: Other specified disorders of kidney and ureter COMPARISON: None. Referring provider: Dacia Tan HISTORY: 63-year-old with a history of renal cell carcinoma status post left nephrectomy in 2021 presenting with a suspicious lymph node in the resection bed. Evaluate for initial treatment strategy. TECHNIQUE: 8.59 mCi of F-18 FDG by IV in the left antecubital fossa.PET/CT image acquisition from the base of the skull to upper thighs after approximately [address] minutes [address] with a [address] being low dose, noncontrast. No separate report for the CT was generated since it wasused for attenuation correction and anatomic localization. Blood glucoselevel of the time of injection was 95 mg/dl. FINDINGS: For reference, SUV max of liver is 3.8. HEAD AND NECK: There is no abnormal FDG uptake. CHEST: Minimal bibasilar atelectasis. The lungs are otherwise clear withno evidence of pneumothorax or pleural effusion. No abnormal FDG avid mediastinal nodes. Benign-appearing bilateral axillary nodes. ABDOMEN AND PELVIS: The left kidney has been resected. There is a 1.7 x1.2 cm left para-aortic lymph node near the resection bed with SUV Max 3.8, concerning for metastasis. No other FDG avid abdominal or pelvic lymph nodes are identified. The gallbladder has been surgically resected. Acyst is noted in the right kidney with photopenia on PET. The liver, adrenal glands, spleen and pancreas are grossly unremarkable. Heterogeneous FDG uptake throughout the bowel, normal variant. Diverticulosis without evidence of diverticulitis. Benign-appearing bilateral inguinal nodes. Mild atherosclerotic calcifications within the aorta and iliac arteries. MUSCULOSKELETAL: Bilateral hip arthroplasties are noted. Degenerative changes throughout the spine. No FDG avid lytic or blastic lesion is identified. There is no abnormal FDG avid lesion. IMPRESSION: 1. Moderately FDG avid left para-aortic lymph node in the leftnephrectomy bed is concerning for metastasis given the history of renal cellcarcinoma. 2. No additional FDG avid abdominopelvic lymph nodes or evidence ofdistant metastatic disease. > Interpreting Provider: Roberto Moreira DO on 04/09/2024 1:17 PM Dacia Tan MD [place] ORDERABLES Final Result from Last 3 Months Insurance DONNY Advance Directives * Full Code (Latest Code Status on File) Date Activated Date Inactivated Comments 04/30/2024 8:16 PM 05/01/2024 3:38 PM
--- OUTSIDE RECORDS SUMMARY | 2024-06-14 12:03 | XMS_ITS | Encounter Summary ---
Author Organization [facility] Health Address [address] [place] [address] Care Team Providers Care Sign Writer Hand Name Role Phone Virgil Crum MD Primary Care Provider [phone] Encounter Details Date Type Department Care Team (Late st Contact Info) Description 09/16/2014 [facility] Outpatient Visit EXTERNAL NON[facility] [place] [id number] [address] Social History Tobacco Use Types Packs/Day Years Used Date Smoking Tobacco: Never Smokeless Tobacco: Never Alcohol Use Standard Drinks/Week Comments No 0 (1 standard drink = 0.6 oz pur e alcohol) Comments No Sex and Gender Information Value Date Recorded Sex Assigned at Female 04/16/2024 2:23 PM FLOOR SWEEPER Legal Sex Female 6:08 AM FLOOR SWEEPER Gender Identity Female 04/16/2024 2:23 PM FLOOR SWEEPER Sexual Orientation Straight 04/16/2024 2: 23 PM FLOOR SWEEPER documented as of this encounter Plan of Treatment Upcoming Encounters Date Type Department Care Team (Late st Contact Info) Description 08/10/2024 1:[address] [facility] Health Imaging Services - CT Scan [address] [place] [address] 08/10/2024 2:00 PM CDT Office Visit [facility] - Urology [address] [place] [address] Maximilian Christy MD [address] [place] [address] documented as of this encounter Visit Diagnoses Not on filedocumented in this encounter Care Teams Sign Writer Hand Relationship Specialty Start Date End Date Virgil Crum MD PCP - General Internal Medicine 09/16/14 04/19/24 documented as of this encounter
== END 2024-06-14 11:41 | disposition home or self-care (01) ==
PROVIDERS: Emergency Provider Registered Nurse
DX: J32.9 Chronic sinusitis, unspecified (principal); Z20.822 Contact with and (suspected) exposure to COVID-19; I10 Essential (primary) hypertension
CPT/HCPCS: 87426; 87804; 99203; G0463

== ENCOUNTER 2024-06-21 10:30 | Emergency (ER) | payer BC, SELFPAY ==
--- NOTE | ~2024-06-21 | XR_ITS ---
Clinical Indication: Cough PA and lateral views of the chest: Comparison: None Findings: The lungs are clear, without evidence of focal consolidation or pleural effusion. Cardiome diastinal silhouette is within normal limits. Bones and soft tissues are unremarkable. Impression: Normal chest. Reviewed, dictated and finalized at location . Impression: Normal chest.
[2024-06-21 10:51] VITALS: BP 131/77; PULSE 90; RESP 20; TEMP 36.6; O2SAT 99
--- OUTSIDE RECORDS SUMMARY | 2024-06-21 11:23 | XMS_ITS | CONTINUITY OF CARE DOCUMENT ---
Author Name shaquille corbin Address Unknown Organization [facility] Office Address [address] [place] [address] [address] [place] [address] Phone [phone] Care Team Providers Care Eligibility Services Representative Name Role Phone Lino DICK, [place] Unavailable BENNY DUKE MD Unavailable PROBLEMS Condition Status Date Provider Notes Cardiovascular screening active [place] INSURANCE PROVIDERS Payer name Policy type / Coverage type [employer] party ID [employer] Commercial insurance company [id number] TREATMENT PLAN Date Name CT, Coronary Calcium Score HISTORY OF PROCEDURES Procedure Date Procedure Name Provider Procedure Notes S tatus CT- Coronary CA score [place] Huynh MD completed
--- OUTSIDE RECORDS SUMMARY | 2024-06-21 11:23 | XMS_ITS | Clinical Summary ---
Author Organization [facility] Address [address] [place] [address] Care Team Providers Care Projection Printer Name Role Phone Unavailable Primary Care Provider Unavailabl e Source Comments [facility],non-owned Affiliates and Associated Physician Practices is amultiple site organization consisting of ambulatory clinics and hospital sitesin [place], [place], [place] and [place]. This disclosure is being madepursuant to the Care Everywhere program and may not contain all information available regarding this patient. Last updated 17.[facility] [employer]™ Allergies Active Allergy Reactions Criticality Noted Date [...] AT NIGHT 03/22/19 25 Active HYDROcodone-acetami nophen ([place]) 5-325 MG tabletIndications:H istory of kidney cancer [...] Office Visit [facility] [address] [place] [address] [address] [place] [address] Maximilian Christy MD Personal history of kidney cancer (Primary Dx) 05/11/2024 Travel 04/30/2024 7:22 AM CDT Anesthesia Event [facility] ELLIE OP [address] [place] [address] Bar Soto MD Garcia, Alec, MD 04/30/2024 7:00 AM CDT - 04/30/2024 10:49 AM CDT Surgery [facility] OP [address] [place] [address] Maximilian Christy MD Robotic excision of retroperitoneal mass, intraoperative ultrasound 04/30/2024 5:23 AM CDT - 05/01/2024 2:00 PM CDT Hospital Encounter [facility] 6S ACUTE [address] [place] [address] Maximilian Christy MD Surgery General Discharge Disposition: Home or Self Care 04/30/2024 Travel 04/20/2024 11:00 AM COGENERATION TECHNICIAN - 04/20/2024 11:59 PM COGENERATION TECHNICIAN Hospital Encounter [facility] LAB OP DRAW STATION [address] [place] [address] Discharge Disposition: Home or Self Care 04/20/2024 10:30 AM COGENERATION TECHNICIAN - 04/20/2024 10:59 AM [facility] Hospital Encounter [facility] PAT [address] [place] [address] Maximilian Christy MD Urology Discharge Disposition: Home or Self Care 04/20/2024 Travel 04/16/2024 Orders Only [facility] [address] [place] [address] Steph Bhatt LPN Personal history of kidney cancer ; Pre-op testing 04/16/2024 Telephone [facility] [address] [place] [address] Maximilian Christy MD Surgery Scheduling 04/13/2024 11:00 AM COGENERATION TECHNICIAN Office Visit [facility] [address] [place] [address] [address] [place] [address] Maximilian Christy MD Personal history of kidney cancer (Primary Dx) 04/13/2024 Travel 04/11/[address] [place] [address] Missy Buckley MD MEDICATION REFILL 04/09/2024 2:00 PM COGENERATION TECHNICIAN Office Visit [address] [place] [address] Missy Buckley MD Renal cancer, left (Primary Dx) 04/09/2024 11:02 AM COGENERATION TECHNICIAN - 04/09/2024 11:59 PM COGENERATION TECHNICIAN Hospital Encounter [facility] - PET Scan [address] [place] [address] [address] [place] [address] Dacia Tan MD Internal Medicine Discharge Disposition: [...] Sex Assigned at Female 04/16/2024 2:23 PM COGENERATION TECHNICIAN Legal Sex Female 6:08 AM COGENERATION TECHNICIAN Gender Identity Female 04/16/2024 2:23 PM COGENERATION TECHNICIAN Sexual Orientation Straight 04/16/2024 2: 23 PM COGENERATION TECHNICIAN Last Filed Vital Signs Vital Sign Reading [...] Info) Description 08/10/2024 1:00 PM CDT Appointment [facility] Health Imaging Services - CT Scan [address] [place] [address] 08/10/2024 2:00 PM CDT Office Visit [facility] [address] [address] [place] [address] Maximilian Christy MD [address] [place] [id number] Health Maintenance Due Date Last Done Comments [...] this topic Medical Devices Implanted Type Area Spreader Box Operator Device Identifier Shelf Expiration Date Model / Serial / Lot Slnt Tiss Clsr Vistaseal Fbrn 10ml Frz - [id number] Implanted:Qty: 1 on 04/30/2024 by Maximilian Christy MD at [facility] Left: Abdomen [employer] 11/07/2025 VST10 / [id number] / [id number] Procedures Procedure Name Priority Date/Time Associated Diagnosis [...] NOTE Routine 04/30/2024 8: 09 AM CDT [place] ULTRASONIC GUIDANCE INTRAOPERATIVE 04/30/2024 6:54 AM CDT Personal history of kidney cancer Case Notes Reviewed SM 04/29 / Pre-admit date: 04/30/[address] [facility] # [id number] TYPE + SCREEN PANEL JEAN-CLAUDE 04/30/2024 6 :05 AM CDT CULTURE URINE Routine 04/20/2024 11:33 AM COGENERATION TECHNICIAN Personal history of kidney cancer Pre-op testing TYPE + SCREEN PANEL Routine 04/20/2024 1 1:28 AM COGENERATION TECHNICIAN Preop testing IRON + TIBC + FERRITIN Routine 04/09/2024 4:29 PM COGENERATION TECHNICIAN Renal cancer, left LDH BLOOD Routine 04/09/2024 4:29 PM COGENERATION TECHNICIAN Renal cancer, left COMPREHENSIVE METABOLIC PANEL Routine 04/09/2024 4:29 PM COGENERATION TECHNICIAN Renal cancer, left CBC W AUTO DIFFERENTIAL (CANCER CARE) Routine 04/09/2024 2:55 PM COGENERATION TECHNICIAN Renal cancer, left PET CT SKULL TO MID THIGH Routine 04/09/2024 12:05 PM COGENERATION TECHNICIAN Other specified disorders of kidney and ureter from Last 3 Months Results * (ABNORMAL) HEMOGLOBIN (05/01/2024 11:53 AM CDT) [facility] Hemoglobin 10.1(L) 11.9 - 15.8 g/dL 05/01/2024 12:03 PM CDT [facility] Blood BLOOD SPECIMEN / Unknown Lab Venipuncture / Unknown 05/01/2024 11:53 AM CDT 05/01/2024 11:57 AM CDT Eli JORDAN LAB - HEMATOLOGY ORDERA BLES Final Result [address] [address], [facility] [phone] * PREPARE (CROSSMATCH) RBC UNIT(S), 2 Units (05/01/2024 7:45 AM CDT) [facility] Unit Description AS1 LR PRBC [facility] BLOOD [facility]ANK LAB Unit ABO O [facility]LOOD B[facility] LAB Unit Rh NEG [facility] Product Number R02 [facility] B LOOD BANK LAB Unit Donor # [id number] [facility] Unit Status released [facility] BLOO D BANK LAB Product Code [id number] [facility] BLO OD BANK LAB Blood Type Barcode 9500 [facility] LAB Expiration Date [id number] S BLOOD BANK LAB Unit Description AS1 LR PRBC [facility] BLOOD [facility] LAB Unit ABO O [facility] BLOOD [facility] LAB Unit Rh NEG [facility] BLOOD [facility] LAB Product Number R02 [facility] B LOOD [facility]ANK LAB Unit Donor # [id number] [facility] BLOOD [facility] LAB Unit Status released [facility] BLOO D BANK LAB Product Code [id number] [facility] BLO OD BANK LAB Blood Type Barcode 9500 [facility] BLOOD [facility] LAB Expiration Date [id number] S BLOOD BANK LAB Blood Bank BLOOD SPECIMEN / Unknown 04/30/2024 6:19 AM CDT Eli MCKEONTEEN COUNSELOR LAB - BLOOD BANK ORDERA BLES Final Result [facility] BLOOD BANK LAB [address] [place] [address], [facility] [phone] * (ABNORMAL) CBC W/O DIFFERENTIAL (05/01/2024 5:41 AM CDT) [facility] WBC 5.6 4.0 - 10.7 x10E9/L 05/01/2024 6:02 AM [facility] RBC Count 3.49(L) 3.90 - 5.20 x10E12/L 05/01/2024 6:[address] [facility] Hemoglobin 10.5(L) 11.9 - 15.8 g/dL 05/01/2024 6:[address] [facility] Hematocrit 32.3(L) 34.8 - 46.1 % 05/01/2024 6:[address] [facility] MCV 92.6 80.0 - 98.0 fL 05/01/2024 6:[address] [facility] MCH 30.1 26.7 - 33.6 pg 05/01/2024 6:[address] [facility] MCHC 32.5 31.7 - 36.3 g/dL 05/01/2024 6:[address] [facility] RDW-CV 13.6 11.3 - 14.8 % 05/01/2024 6:[address] [facility] Platelet Count 340 150 - 420 x10E9/L 05/01/2024 6:[address] [facility] MPV 9.2 7.8 - 11.4 fL 05/01/2024 6:[address] [facility] Blood BLOOD SPECIMEN / Unknown Lab Venipuncture / Unknown 05/01/2024 5:41 AM CDT 05/01/2024 5:58 AM CDT us Maximilian Christy MD LAB - HEMATOLOGY ORDERABLE S Final Result [facility] [address] [place] [address], [facility] [phone] * (ABNORMAL) BASIC METABOLIC PANEL (CALCIUM TOTAL) (05/01/2024 5:41 AM CDT) BUN 14 7 - 26 mg/dL 05/01/2024 6:[address] [facility] Creatinine 0.86 0.56 - 0.96 mg/dL 05/01/2024 6:[address] [facility] Sodium 140 136 - 145 mmol/L 05/01/2024 6:[address] [facility] Potassium 4.0 3.5 - 4.5 mmol/L 05/01/2024 6:[address] [facility] Chloride 110(H) 98 - 107 mmol/L 05/01/2024 6:[address] [facility] CO2 25 22 - 29 mmol/L 05/01/2024 6:[address] [facility] Glucose 92 70 - 99 mg/dL 05/01/2024 6:[address] [facility] Calcium 8.0(L) 8.4 - 10.2 mg/dL 05/01/2024 6:[address] [facility] Anion Gap 5(L) 6 - 16 05/01/2024 6:[address] [facility] BUN/Creatinine Ratio 16 7 - 23 05/01/2024 6:[address] [facility] Osmolality Calculated 290 275 - 295 mOsm/kg 05/01/2024 6:[address] [facility] eGFR by CKD-EPI 76(L) >=90 mL/min/1.7 3 m2 05/01/2024 6:[address] [facility] Blood BLOOD SPECIMEN / Unknown Lab Venipuncture / Unknown 05/01/2024 5:41 AM CDT 05/01/2024 5:56 AM CDT Maximilian Christy MD LAB - CHEMISTRY ORDERABLES Final Result [facility] [address] [place] [address], [facility] [phone] * PATHOLOGY TISSUE (04/30/2024 10:39 AM CDT) Case Report Surgical Pathology Report Case: [id number] Authorizing Provider: Maximilian Christy MD Collected: 04/30/2024 10:39 AM Ordering Location: [facility] Received: 04/30/2024 12:51 PM Pathologist: Maddie Lott MD Specimen: Soft Tissue Mass, ellie- aortic mass 05/01/2024 3:17 PM [facility] Final Diagnosis Lymph nodes, periaortic mass, excision (A): - Metastatic renal cell carcinoma involving at least one lymph node 05/01/2024 3:17 PM [facility] Microscopic Description and Comment Sections show multiple lymph node sections, containing papillary fragments of epithelioid cells with abundant eosinophilic cytoplasm and pleomorphic nuclei with prominent nucleoli. Lesional cells are diffusely positive for PAX8 and negative for CK7, consistent with a renal cell carcinoma. It is unclear from the gross description how many individual lymph nodes were resected. 05/01/2024 3:17 PM [facility] Clinical History The patient is a 63-year-old woman status post robotic left radical nephrectomy 03/2021, pT2a papillary RCC. Follow up imaging negative until 02/2024 when a new mass was noted in the left nephrectomy bed, ~2cm, and this was confirmed as positive on a PET 03/2024. 05/01/2024 3:17 PM [facility] Gross Description The requisition and [...] in A5. AL 05/01/2024 3:17 PM CDT [facility] Pathologist Location at [facility] 05/01/2024 3:17 PM CDT [facility] Disclaimer The performance characteristics of all immunohistochemical and indirect immunofluorescence stains (if any) cited in this report were determined by the Histopathology Laboratory of [facility]. Some of these tests were developed by [...] attending (teaching) pathologist. 05/01/2024 3:17 PM CDT [facility] Embedded Images 05/01/2024 3:17 PM CDT [facility] Biopsy, Excision SOFT TISSUE MASS / Unknown 04/30/2024 10:39 AM CDT 04/30/2024 12:51 PM CDT Comment:Pre-op diagnosis: Personal history of kidney cancer Maximilian Christy MD LAB - PATHOLOGY/CYTOLOGY O RDERAADONIS Final Result [facility] [address] [place] [address], [facility] [phone] * IV PLACEMENT PERFORMABLE (04/30/2024 8:10 AM CDT) Narrative Shravan Santoyo MD - 04/30/2024 8:10 AM CDT Shravan Santoyo MD 04/30/2024 8:10 AM Peripheral IV Line Placement: Patient Location: OR Insertion Time: 04/30/2024 7:35 AM Procedure: IV start ([id number]) Procedure Section: Skin Prep: alcohol. Orientation: left [...] Event Date/Time: 04/30/2024 7:36 AM Procedure: intubation ([id number]) Procedure Section: Sedation: under general anesthesia. Indications [...] Time: 04/30/2024 7:40 AM Procedure: Arterial Line ([id number]) Procedure Section Indications: continuous blood pressure monitoring. [...] resultswithin the time period is included. Pathologist [facility] Antibody Screen NEG 7:04 AM CDT [facility] LAB ABO Rh O NEG 04/30/2024 7:04 AM CDT [facility] Blood Bank BLOOD SPECIMEN / Unknown Venipuncture / Unknown 04/30/2024 6:05 AM CDT 04/30/2024 6:19 AM CDT Eli Hunt APRN-TEEN COUNSELOR LAB - BLOOD BANK ORDERA BLES Final Result Performing Organization Address City/[facility]/ZIP Co de Phone Number [facility] LAB [address] [place] [address], [place] [phone] * CULTURE URINE (04/20/2024 11:33 AM COGENERATION TECHNICIAN) [facility] Culture Urine 10,000-50,000 CFU/mL urogenital kay CASANDRA 04/22/2024 2:27 AM COGENERATION TECHNICIAN [facility] MICROBIOLOGY Urine URINE SPECIMEN OBTAINED BY CLEAN CATCH PROCEDURE / Unknown Collection / Unknown 04/20/2024 11:33 AM COGENERATION TECHNICIAN 04/20/2024 11:45 AM COGENERATION TECHNICIAN us Maximilian Christy MD LAB - MICROBIOLOGY ORDERAB LES Final Result [facility] MICROBIOLOGY [address] [place] [address], [facility] [phone] * IRON + TIBC + FERRITIN (04/09/2024 4:29 PM COGENERATION TECHNICIAN) Pathologist [facility] TIBC 297 250 - 450 ug/dL [facility] ACCOUNT BILL UIBC 192 118 - 369 ug/dL [facility] ACCOUNT BILL Iron 105 27 - 139 ug/dL [facility] ACCOUNT BILL Iron Saturation 35 15 - 55 % [facility] ACCOUNT BILL Ferritin 57 15 - 150 ng/mL [facility] ACCOUNT BILL Blood BLOOD SPECIMEN / Unknown 04/09/2024 4:29 PM COGENERATION TECHNICIAN 04/09/2024 Comment:Blood Release to pat i Jaron [facility] ACCOUNT BILL - 04/10/2024 12:36 PM COGENERATION TECHNICIAN Performed at: [address] [id number] Under Water Assistant: Dean Holder PhD, Phone: [phone] us Missy Buckley MD LAB - CHEMISTRY ORDERABLES Fin al Result [facility] ACCOUNT BILL [address] [place] [address] * (ABNORMAL) COMPREHENSIVE METABOLIC PANEL (04/09/2024 4:29 PM COGENERATION TECHNICIAN) Glucose 86 70 - 99 mg/dL [facility] [...] BLOOD SPECIMEN / Unknown 04/09/2024 4:29 PM COGENERATION TECHNICIAN 04/09/2024 Comment:Blood Release to pat i Narrative [facility] ACCOUNT BILL - 04/09/2024 8:35 PM COGENERATION TECHNICIAN Performed at: [address] [place] [id number] Under Water Assistant: Gabino Baird Dr, Phone: [phone] Missy Buckley MD LAB - CHEMISTRY ORDERABLES Fin al Result Performing Organization Address City/[facility]/ZIP Co de Phone Number [facility] ACCOUNT BILL [address] [place] [address] * LDH BLOOD (04/09/2024 4:29 PM COGENERATION TECHNICIAN) [facility] LDH 219 125 - 220 U/L [facility] ACCOUNT BILL Blood BLOOD SPECIMEN / Unknown 04/09/2024 4:29 PM COGENERATION TECHNICIAN 04/09/2024 Comment:Blood Release to [facility] i Narrative [facility] ACCOUNT BILL - 04/09/2024 8:35 PM COGENERATION TECHNICIAN Performed at: [address] [place] [id number] Under Water Assistant: Gabino Baird Dr, Phone: [phone] Missy Buckley MD LAB - CHEMISTRY ORDERABLES Fin al Result Performing Organization Address [place]/[facility] [[email or web address]] de Phone Number [facility] ACCOUNT BILL [address] [place] [address] * (ABNORMAL) CBC W AUTO DIFFERENTIAL (CANCER CARE) (04/09/2024 2:55 PM COGENERATION TECHNICIAN) [facility] WBC 3.8(L) 4.4 - 10.7 x10E9/L 04/09/2024 3:01 PM COGENERATION TECHNICIAN [facility] Neutrophils % 46.3 44.0 - 73.0 % 04/09/2024 3:01 PM COGENERATION TECHNICIAN [facility] Lymphocytes % 43.5(H) 20.0 - 43.0 % 04/09/2024 3:01 PM COGENERATION TECHNICIAN [facility] Monocytes % 7.0 5.0 - 13.0 % 04/09/2024 3:01 PM COGENERATION TECHNICIAN [facility] Eosinophils % 2.9 0.0 - 6.0 % 04/09/2024 3:01 PM [facility] Basophils % 0.3 0.0 - 2.0 % 04/09/2024 3:01 PM [facility] Neutrophil Absolute 1.78(L) 2.01 - 7.14 x10E9/L 04/09/2024 3:01 PM [facility] Lymphocytes Absolute 1.67 1.07 - 3.94 x10E9/L 04/09/2024 3:01 PM [facility] Monocytes Absolute 0.27 0.26 - 1.07 x10E9/L 04/09/2024 3:01 PM [facility] Eosinophils Absolute 0.11 0 - 0.47 x10E9/L 04/09/2024 3:01 PM [facility] Basophils Absolute 0.01 0 - 0.08 x10E9/L 04/09/2024 3:01 PM [facility] RBC 4.17 3.80 - 5.20 x10E12/L 04/09/2024 3:01 PM [facility] Hemoglobin 12.6 12.0 - 15.6 gm/dL 04/09/2024 3:01 PM [facility] Hematocrit 39.7 35.9 - 45.5 % 04/09/2024 3:01 PM [facility] MCV 95.2 80.7 - 98.3 fl 04/09/2024 3:01 PM [facility] MCH 30.2 26.7 - 34.0 pg 04/09/2024 3:01 PM [facility] MCHC 31.7 30.8 - 35.9 gm/dL 04/09/2024 3:01 PM [facility] RDW-CV 12.7 12.1 - 14.9 % 04/09/2024 3:01 PM [facility] Platelet Count 459(H) 153 - 416 x10E9/L 04/09/2024 3:01 PM COGENERATION TECHNICIAN [facility] MPV 8.7(L) 9.4 - 12.9 fl 04/09/2024 3:01 PM [facility] Blood BLOOD SPECIMEN / Unknown 04/09/2024 2:55 PM COGENERATION TECHNICIAN 04/09/2024 2:55 PM COGENERATION TECHNICIAN us Missy Buckley MD LAB - HEMATOLOGY ORDERABLES Fi nal Result [facility] [address] [address] * PET CT Skull To Mid Thigh (04/09/2024 12:05 PM COGENERATION TECHNICIAN) Anatomical Region Laterality Modality Head, Lower Extremity Nuclear Me dicine 04/09/2024 1:00 PM COGENERATION TECHNICIAN Impressions 04/09/2024 1:17 PM COGENERATION TECHNICIAN IMPRESSION: 1. Moderately FDG avid left para-aortic lymph node in the left nephrectomy bed is concerning for metastasis given the history of renal cell carcinoma. 2. No additional FDG avid abdominopelvic lymph nodes or evidence of distant metastatic disease. > Interpreting Provider: Roberto Moreira DO on 04/09/2024 1:17 PM Narrative 04/09/2024 1:17 PM COGENERATION TECHNICIAN PROCEDURE: PET CT SKULL TO MID THIGH [...] on 04/09/2024 1:17 PM Dacia Tan MD [place] ORDERABLES Final Result from Last 3 Months Insurance DONNY Advance Directives * Full Code (Latest Code Status on File) Date Activated Date Inactivated Comments 04/30/2024 8:16 PM 05/01/2024 3:38 PM
--- OUTSIDE RECORDS SUMMARY | 2024-06-21 11:23 | XMS_ITS | Clinical Summary ---
Author Organization [facility] Address [address] [facility] [place] [address] Care Team Providers Care Telecommunications Equipment Installer Name Role Phone Unavailable Primary Care Provider Unavailabl e Encounters Date Type Department Care Team Description 06/06/2024 Abstract [facility] Shobha Quintero [address] [facility] [address] Sandra Ellison MD from Last 3 Months Social History Tobacco Use Types Packs/Day Years Used Date Smoking Tobacco: Never Assessed Comments Unknown Sex and Gender Information Value Date Recorded Sex Assigned at Not on file Legal Sex Female 6:36 PM CURATOR OF EDUCATION Gender Identity Not on file Sexual Orientation Not on file Plan of Treatment Health Maintenance Due Date Last Done Comments HPV/Cotest (21-29) 1982 CERVICAL CANCER SCREENING 08/26/1991 HPV/Cotest (30-65) 08/26/1991 PAP SMEAR 08/26/1991 COLORECTAL SCREENING 2006 Colorectal Cancer Screening 2006 FIT-DNA Q 3 years 2006 FIT/FOBT Q 1 year 2006 Flex Sig/CT Colonography Q 5 years 2006 ZOSTER VACCINE (1 of 2) 08/26/2011 BREAST CANCER SCREENING 12/09/2022 12/10/19 22, 09/11/2020, 08/30/2018, Additional history exists INFLUENZA VACCINE (#1) 2023 2, 11/06/2019, 01/21/2018, Additional history exists COVID-19 Vaccine (2023-2 5 season) 2023 07/29/2021 DTAP/TDAP/TD VACCINES (3 - T d or Tdap) 11/05/2030 11/05/2020, 05/28/2009 RSV VACCINE (60+ or ) (1 - 1-dose 75+ series) 2036 Insurance [employer]
--- OUTSIDE RECORDS SUMMARY | 2024-06-21 11:23 | XMS_ITS | Referral Summary ---
Author Organization [facility] al Address [address] [place] [address] Care Team Providers Care Floor Sanding Machine Operator Name Role Phone Zachary Kwon MD Unavailable [phone] Dacia Tan MD Primary Care Provid er Satish Pedroza MD Unavailable Encounters Date Type Department Care Team Description 06/13/2024 Orders Only [facility] General Neurology [address] 6th [address] [place] [id number] Nicole Beck Intractable chronic migraine without aura and without status migrainosus (Primary Dx) 04/04/2024 8:30 AM HEAD REFRIGERATING ENGINEER Telemedicine [facility] Neuro Sleep [address] 6th [address] [place] [address] Bharathi Durán PA 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); Restless legs syndrome (RLS); Anxiety 04/03/2024 Documentation [facility] Surgery [address] [place] [address] Evie Israel RMA 04/03/2024 Documentation [facility] Surgery [address] [place] [address] Evie Israel RMA 03/28/2024 8:20 AM [facility] ([facility]) - [facility] Urology [address] [facility] 11th [place] [address] [place] [address] Brandon Lam MD Malignant neoplasm of left kidney (HCC) (Primary Dx) from Last 3 Months Allergies Active Allergy [...] 24 HOURS 12 tablet 5 3 Active gabapentin (NEURONTIN) 300 mg capsule TAKE [...] the afternoon PRN 30 tablet [address] (CYMBALTA) 20 mg capsule Take 1 capsule (20 mg total) by mouth 2 (two) times a day 60 capsule [address] (CYMBALTA) 20 mg capsule Take 1 capsule (20 mg total) by mouth 2 (two) times a day 60 capsule 11 4 06/19/19 25 Discontin ued(Reord er) dextroamphetam ine-amphetamin e XR (ADDERALL XR) 15 [...] (09/02/2021): Added automatically from request for surgery [id number] Primary osteoarthritis of right hip 08/05/2021 Renal mass 03/16/2021 Overview (03/16/2021): Added automatically from request for surgery [id number] Gastroesophageal reflux disease 12/23/2020 Other specified congenital [...] and Family Not on file 12/21/2019 Attends [employer] Not on file 12/20 Active Member [...] on file Legal Sex Female 6:45 PM HEAD REFRIGERATING ENGINEER Gender Identity Female 10/23/2019 8:40 AM CDT Sexual Orientation Straight 07/07/2019 8: 53 AM CDT Last Filed Vital Signs Vital Sign Reading Time Taken Comments Blood Pressure 133/80 03/14/2024 4:19 PM HEAD REFRIGERATING ENGINEER Pulse 76 03/14/2024 4:19 PM HEAD REFRIGERATING ENGINEER Temperature 36.3 C (97.4 F) 03/14/2024 4:19 PM HEAD REFRIGERATING ENGINEER Respiratory Rate 16 08/04/2023 10:07 AM CDT Oxygen Saturation 99% 03/14/2024 4:19 PM HEAD REFRIGERATING ENGINEER Inhaled Oxygen Concentration - - Weight 76 kg (167 lb 8 oz) 03/14/2024 4:19 PM CS T Height 165.1 cm (5' 5 ) 03/14/2024 4:19 PM HEAD REFRIGERATING ENGINEER Body Mass Index 27.87 03/14/2024 4:19 PM HEAD REFRIGERATING ENGINEER Plan of Treatment Not on file Goals [...] as needed Medical Devices Implanted Type Area Cosmetic Assembler Device Identifier Shelf Expiration Date Model / Serial / Lot Vesolock [id number] Symmetry Vesolock Large Clip Internal - Sna - [id number] Implanted:Qty : 1 on 03/27/2021 by Zachary Kwon MD at [facility] Clip Left: Abdomen [employer] 04/22/2023 [id number] / NA / [id number] Vesolock [id number] Symmetry Vesolock Large Clip Internal - Sna - [id number] Implanted:Qty : 1 on 03/27/2021 by Zachary Kwon MD at [facility] Clip Left: Abdomen [employer] 04/22/2023 [id number] / NA / [id number] [employer] G7 50mm Multihole Hip D Hemisphere Offset Shell Acetabular [id number] - Sna - [id number] Implanted:Qty : 1 on 08/05/2021 by Sue Oliver MD at [facility] Other - see comments Right: Hip [employer] [id number] 05/19/2031 [id number] / NA / [id number] Description:Implant pause pe rformed [employer] G7 40mm 2 Mobility Hip D Liner Acetabular Cocr [id number] - Sna - [id number] Implanted:Qty : 1 on 08/05/2021 by Sue Oliver MD at [facility] Other - see comments Right: Hip [employer] [id number] 06/15/2031 [id number] / NA / [id number] Description:Implant pause pe rformed [employer] Taperloc 140mm Type 1 Press Fit Reduce Hip 133d 10 High Offset [id number] - Sna - [id number] Implanted:Qty : 1 on 08/05/2021 by Sue Oliver MD at [facility] Other - see comments Right: Hip [employer] [id number] 10/04/2029 [id number] / NA / [id number] Description:Implant pause pe rformed [employer] G7 Type 1 Hip -6mm Offset Taper Sleeve Centering Titanium Biolox 650-1064 - Sna - [id number] Implanted:Qty : 1 on 08/05/2021 by Sue Oliver MD at [facility] Other - see comments Right: Hip [employer] [id number] 08/06/2030 650-1064 / NA / [id number] Description:Implant pause pe rformed [employer] G7 28mm Hip Head Femoral Biolox Delta Biolox Option 650-1055 - Sna - [id number] Implanted:Qty : 1 on 08/05/2021 by Sue Oliver MD at [facility] Other - see comments Right: Hip [employer] [id number] 12/17/2030 650-1055 / NA / [id number] Description:Implant pause pe rformed [employer] [id number] 40mm 28mm Lumen Hip D Liner Acetabular Longevity Sterile Latex - Sna - [id number] Implanted:Qty : 1 on 08/05/2021 by Sue Oliver MD at [facility] Other - see comments Right: Hip [employer] [id number] 06/20/2024 [id number] / NA / [id number] Description:Implant pause pe rformed [employer] G7 40mm 2 Mobility Hip D Liner Acetabular Cocr [id number] - Sna - [id number] Implanted:Qty : 1 on 10/30/2021 by Sue Oliver MD at [facility] Other - see comments [employer] [id number] 07/10/2031 [id number] / NA / [id number] [employer] 40mm 28mm Lumen Hip D Liner Acetabular Longevity Sterile Latex [id number] - Sna - [id number] Implanted:Qty : 1 on 10/30/2021 by Sue Oliver MD at [facility] Other - see comments [employer] [id number] 02/27/2026 [id number] / NA / [id number] [employer] G7 28mm Type 1 Modular Hip Acetabular -3mm Offset Head Femoral 650-1159 - Sna - [id number] Implanted:Qty : 1 on 10/30/2021 by Sue Oliver MD at [facility] Other - see comments [employer] 650-1159 / NA / [employer] Taperloc 137mm Type 1 Press Fit Reduce Hip 133d 9 High Offset [id number] - Sna - [id number] Implanted:Qty : 1 on 10/30/2021 by Sue Oliver MD at [facility] Other - see comments [employer] 12/18/2030 [id number] / NA / [id number] [employer] G7 50mm Multihole Hip D Hemisphere Offset Shell Acetabular [id number] - Sna - [id number] Implanted:Qty : 1 on 10/30/2021 by Sue Oliver MD at [facility] Other - see comments [employer] [id number] 06/12/2031 [id number] / NA / [id number] Description:Implant pause pe rformed on all implants [employer] Trilogy 6.5mm 15mm Self Tap Screw Bone [id number] - Sna - [id number] Implanted:Qty : 1 on 08/05/2021 by Sue Oliver MD at [facility] Screw Right: Hip [employer] [id number] 10/24/2029 [id number] / NA / [id number] Description:Implant pause pe rformed [employer] Trilogy 6.5mm 20mm Self Tap Screw Bone [id number] - Sna - [id number] Implanted:Qty : 1 on 08/05/2021 by Sue Oliver MD at [facility] Screw Right: Hip [employer] [id number] 05/20/2031 [id number] / NA / [id number] Description:Implant pause pe rformed [employer] Trilogy 6.5mm 40mm Self Tap Hip Acetabular Cortical Screw Bone [id number] - Sna - [id number] Implanted:Qty : 1 on 10/30/2021 by Sue Oliver MD at [facility] Screw [employer] [id number] 08/28/2031 [id number] / NA / [id number] [employer] Trilogy 6.5mm 15mm Self Tap Screw Bone [id number] - Sna - [id number] Implanted:Qty : 1 on 10/30/2021 by Sue Oliver MD at [facility] Screw [employer] [id number] 07/27/2031 [id number] / NA / [id number] Procedures Procedure Name Priority Date/Time Associated Diagnosis Comments SCREENING MAMMOGRAM BILATERAL W GERARD Schedule Routine, Read Routine (OP Routine) 06/02/2023 2:45 PM CDT Screening mammogram, encounter for PAP AND HIGH RISK HPV, REFLEX TO GENOTYPING Routine 12/23/2020 9:33 AM CDT Encounter for gynecological examination with abnormal finding Screening for cervical cancer SERUM HEPATITIS PANEL Routine 03/25/2014 2:16 PM HEAD REFRIGERATING ENGINEER from Last 3 Months or Most Recently Relevant to Health Maintenance Results * Screening Mammogram Bilateral W Gerard (06/02/2023 2:45 PM CDT) Anatomical Region Laterality Modality Breast Bilateral Mammography Narrative 06/06/2023 2:09 PM CDT Mammogram Technique: Bilateral Digital Breast Tomosynthesis, Bilateral C-view 2D Screening mammogram. Views obtained: . Computer Aided Detection was performed. Mammogram Findings: The present examination has been compared to prior imaging studies performed at [facility] on 09/03/2015, 03/16/2017, 08/30/2018 and 09/11/2020. [...] compared to prior imaging studies performed at [facility] on 09/03/2015, 03/16/2017,08/30/2018 and 09/11/2020. There [...] AM CDT) CLINICAL INFORMATION: Routine exam Postmenopausal [facility] LMP 02/21/2015 [facility] Previous Pap INFORMATION NOT PROVIDED [facility] Prev. Bx INFORMATION NOT PROVIDED [facility] SOURCE: Cervix, Endocervix [facility] Pap, specimen adequacy Satisfactory for evaluation. Endocervical/rojas sformation zone component present. [facility] HPV interp Negative for intraepithelial lesion or malignancy. [facility] Director Career LAURA, CT(ASCP) CT screening location: [place] [address] [place] [address] [facility] Comment: EXPLANATORY NOTE: The Pap is [...] High Risk E6/E7 Not Detected NOT DETECTED [employer] Comment: Not Detected High Risk HPV types (16,18,31,33,35,39,45,51,52, 56,58,59,66,68) were not detected. Other HPV types which cause anogenital lesions may be present. The significance of the other types of HPV in malignant processes has not been established. Methodology: Real Time PCR Swab 12/23/2020 9:33 AM CDT 12/24/2020 7:59 AM CDT us Glenna Shields NP LAB CYTOLOGY ORDERABLES Final Result [facility] [address] [place] [address] [facility] [address] [facility] [place] [address] * Serum Hepatitis panel (03/25/2014 2:16 PM HEAD REFRIGERATING ENGINEER) HCV ab Negative NEG HISTORICAL RESULTS Comment: Interpretive Data If confirmation is required, call Laboratory Customer Service to request sample to be sent to [facility] for Hepatitis C Virus (HCV) RNA Detection and Quantitation by Real-Time Reverse Bulk Tank Car Unloader-PCR (RT-PCR). Current interpretive data was last revised [...] HISTO RICAL RESULTS Serum 03/25/2014 2:16 PM HEAD REFRIGERATING ENGINEER us Azar Benson MD LAB BLOOD ORDERABLES [place] Result HISTORICAL RESULTS from Last 3 Months or Most Recently Relevant to Health Maintenance Insurance [place] [facility] Advance Directives For more information, please contact: [phone] * Full Code (Latest Code Status on File) Date Activated Date Inactivated Comments 10/30/2021 10:36 AM 10/31/2021 5:43 PM * Full Code Date Activated Date Inactivated Comments 08/05/2021 11:43 AM 08/06/2021 2:54 PM * Full Code Date Activated Date Inactivated Comments 03/27/2021 3:04 PM 03/28/2021 7:12 PM * Full Code Date Activated Date Inactivated Comments 09/04/2019 8:47 PM 09/07/2019 7:14 PM Care Teams Floor Sanding Machine Operator Relationship Specialty Start Date End Date Dacia Tan MD [address] [address] PCP - General Internal Medicine 05/05/21 Zachary Kwon MD Consulting Physician Urology 03/28/21 Satish Pedroza MD [address] [facility] [place] [address] Consulting Physician Pain Management 12/14/22
--- OUTSIDE RECORDS SUMMARY | 2024-06-21 11:23 | XMS_ITS | Clinical Summary ---
Author Organization [facility] al Address [address] [place] [address] Care Team Providers Care Station Examiner Name Role Phone Zachary Kwon MD Unavailable [phone] Dacia Tan MD Primary Care Provid [...] (09/02/2021): Added automatically from request for surgery [id number] Primary osteoarthritis of right hip 08/05/2021 Renal mass 03/16/2021 Overview (03/16/2021): Added automatically from request for surgery [id number] Gastroesophageal reflux disease 12/23/2020 Other specified congenital [...] Department Care Team Description 06/13/2024 Orders Only [facility] General Neurology [address] 6th [address] [place] [address] Nicole Beck Intractable chronic migraine without aura and without status migrainosus (Primary Dx) 04/04/2024 8:30 AM PIPED BUTTONHOLE MACHINE OPERATOR Telemedicine [facility] Neuro Sleep [address] 6[address] [place] [address] Bharathi Durán PA 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); Restless legs syndrome (RLS); Anxiety 04/03/2024 Documentation [facility] [address] [place] [address] Evie Israel RMA 04/03/2024 Documentation [facility] [address] [place] [address] Evie Israel RMA 03/28/2024 8:20 AM PIPED BUTTONHOLE MACHINE OPERATOR Telemedicine Advanced Medicine ([facility]) - [facility] Urology [address] [place] [address] 11th [place] [address] [place] [address] Brandon Lam MD Malignant neoplasm of left kidney (HCC) (Primary Dx) from Last 3 Months Immunizations Immunization Administration Dates Next Due Influenza, Quadrivalent, Spl it, Intramuscular 01/21/2018 Influenza, Quadrivalent, Spl it, Preservative Free, Intramuscular 11/17/2021,11/06/2019,12/02/2015,12/05 Influenza, Trivalent, IM (MDV) 02/07/2012 Influenza, Unspecified 11/22/2019 Moderna SARS-CoV-2 Monovalen t Vaccination (12+ YRS) 07/29/2021 TD Preservative Free 11/05/2020 Tdap 05/28/2009 Surgical History Surgery Date Site/Laterality Comments [place] LIG/TRNSXJ FLP TUBE ABDL/VAG APPR UNI/BI Tubal Ligation - (Added by TW Conv) ANKLE SURGERY Ankle Surgery - RIGHT ANKLE 2005; LEFT IN 2009 (Added by TW Conv) [place] CHOLECYSTECTOMY c2015 Cholecystectomy - (Added by TW Conv) SPINE SURGERY tethered cord syndrome/surgery August 2018 TUBAL LIGATION 1993 ABDOMINAL SURGERY Left kidney removed 03/2021 NEPHRECTOMY 03/24/2021 - 04/20/2021 Left TOTAL HIP ARTHROPLASTY Right CHOLECYSTECTOMY 02/22/2016 - 02/20/2017 [place] ARTHRP ACETBLR/PROX FEM PROSTC AGRFT/ALGRFT 08/05/2021 Right [place] ARTHRP ACETBLR/PROX FEM PROSTC AGRFT/ALGRFT 10/30/2021 Left [...] Father Lavon Herman Alzheimer's disease Mother Shelly Orellanabard Breast cancer Mother Shelly Brennand Breast Cancer - DX @ 51YO AND 2ND TIME @ 60YO (Added by TW Conv) Cancer Mother Shelly Brennand Migraines Other 1 Migraine Headac he - [...] and Family Not on file 12/21/2019 Attends Sikhism Services Not on file 12/20 Active Member [...] on file Legal Sex Female 6:45 PM PIPED BUTTONHOLE MACHINE OPERATOR Gender Identity Female 10/23/2019 8:40 [...] Comments Blood Pressure 133/80 03/14/2024 4:19 PM PIPED BUTTONHOLE MACHINE OPERATOR Pulse 76 03/14/2024 4:19 PM PIPED BUTTONHOLE MACHINE OPERATOR Temperature 36.3 C (97.4 F) 03/14/2024 4:19 PM PIPED BUTTONHOLE MACHINE OPERATOR Respiratory Rate 16 08/04/2023 10:07 AM CDT Oxygen Saturation 99% 03/14/2024 4:19 PM PIPED BUTTONHOLE MACHINE OPERATOR Inhaled Oxygen Concentration - - Weight 76 kg (167 lb 8 oz) 03/14/2024 4:19 PM CS T Height 165.1 cm (5' 5 ) 03/14/2024 4:19 PM PIPED BUTTONHOLE MACHINE OPERATOR Body Mass Index 27.87 03/14/2024 4:19 PM PIPED BUTTONHOLE MACHINE OPERATOR Plan of Treatment Health Maintenance Due Date Last Done Comments Colon Cancer Screening-Colonoscopy 1960 Hepatitis B Screening 08/26/1979 Depression Screening 08/15/2020 08/16/2019, 08/16/19 20 Cervical Cancer Screening 12/23/2021 12/23/2020, Covid-19 Vaccine ( season) 2023 07/29/2021, 03/27/2020, 02/28/2020 Breast Cancer Screening-Mammogram 06/01/2024 [...] Type Associated Problems Recent Progress Patient-Stated? Author [facility] Chronic Pain Care Plan Chronic Care Management On track(2023 9:27 AM CDT) No Cristin Johnston, RN Note: Problem: Chronic Pain Goals: 1. Minimize further functional decline 2. Maximize quality of life 3. Control pain Strategies: - Activity/exercise program recommendation - Conservative stepwise pain medicine strategy with multi-disciplinary approach - Recommend healthy lifestyle strategies and compensatory methods as needed [facility] Fall Prevention Care Plan Chronic Care Management No change(05/24 9:39 AM CDT) No Chelsea Patiño, RN Note: Problem: Falls Goals: 1. Maintain strength and balance as able 2. Prevent falls and fractures 3. Maximize safety of living environment Strategies: - Educate on fall prevention and follow-up as needed - Recommend activity/exercise program - Refer to allied health as needed - Recommend healthy lifestyle strategies and compensatory methods as needed Medical Devices Implanted Type Area Jtac Device Identifier Shelf Expiration Date Model / Serial / Lot Randy [id number] Symmetry Vesolock Large Clip Internal - Sna - [id number] Implanted:Qty : 1 on 03/27/2021 by Zachary Kwon MD at [facility] Clip Left: Abdomen [employer] 04/22/2023 [id number] / NA / [id number] Devikaolock [id number] Symmetry Vesolock Large Clip Internal - Sna - [id number] Implanted:Qty : 1 on 03/27/2021 by Zachary Kwon MD at [facility] Clip Left: Abdomen [employer] 04/22/2023 [id number] / NA / [id number] [employer] G7 50mm Multihole Hip D Hemisphere Offset Shell Acetabular [id number] - Sna - [id number] Implanted:Qty : 1 on 08/05/2021 by Sue Oliver MD at [facility] Other - see comments Right: Hip [employer] [id number] 05/19/2031 [id number] / NA / [id number] Description:Implant pause pe rformed [employer] G7 40mm 2 Mobility Hip D Liner Acetabular Cocr [id number] - Sna - [id number] Implanted:Qty : 1 on 08/05/2021 by Sue Oliver MD at [facility] Other - see comments Right: Hip [employer] [id number] 06/15/2031 [id number] / NA / [id number] Description:Implant pause pe rformed [employer] Taperloc 140mm Type 1 Press Fit Reduce Hip 133d 10 High Offset [id number] - Sna - [id number] Implanted:Qty : 1 on 08/05/2021 by Sue Oliver MD at [facility] Other - see comments Right: Hip [employer] [id number] 10/04/2029 [id number] / NA / [id number] Description:Implant pause pe rformed [employer] G7 Type 1 Hip -6mm Offset Taper Sleeve Centering Titanium Biolox 650-1064 - Sna - [id number] Implanted:Qty : 1 on 08/05/2021 by Sue Oliver MD at [facility] Other - see comments Right: Hip [employer] [id number] 08/06/2030 650-1064 / NA / [id number] Description:Implant pause pe rformed [employer] G7 28mm Hip Head Femoral Biolox Delta Biolox Option 650-1055 - Sna - [id number] Implanted:Qty : 1 on 08/05/2021 by Sue Oliver MD at [facility] Other - see comments Right: Hip [employer] [id number] 12/17/2030 650-1055 / NA / [id number] Description:Implant pause pe rformed [employer] [id number] 40mm 28mm Lumen Hip D Liner Acetabular Longevity Sterile Latex - Sna - [id number] Implanted:Qty : 1 on 08/05/2021 by Sue Oliver MD at [facility] Other - see comments Right: Hip [employer] [id number] 06/20/2024 [id number] / NA / [id number] Description:Implant pause pe rformed [employer] G7 40mm 2 Mobility Hip D Liner Acetabular Cocr [id number] - Sna - [id number] Implanted:Qty : 1 on 10/30/2021 by Sue Oliver MD at [facility] Other - see comments [employer] [id number] 07/10/2031 [id number] / NA / [id number] [employer] 40mm 28mm Lumen Hip D Liner Acetabular Longevity Sterile Latex [id number] - Sna - [id number] Implanted:Qty : 1 on 10/30/2021 by Sue Oliver MD at [facility] Other - see comments [employer] [id number] 02/27/2026 [id number] / NA / [id number] [employer] G7 28mm Type 1 Modular Hip Acetabular -3mm Offset Head Femoral 650-1159 - Sna - [id number] Implanted:Qty : 1 on 10/30/2021 by Sue Oliver MD at [facility] Other - see comments [employer] 650-1159 / NA / [employer] Taperloc 137mm Type 1 Press Fit Reduce Hip 133d 9 High Offset [id number] - Sna - [id number] Implanted:Qty : 1 on 10/30/2021 by Sue Oliver MD at [facility] Other - see comments [employer] 12/18/2030 [id number] / NA / [id number] [employer] G7 50mm Multihole Hip D Hemisphere Offset Shell Acetabular [id number] - Sna - [id number] Implanted:Qty : 1 on 10/30/2021 by Sue Oliver MD at [facility] Other - see comments [employer] [id number] 06/12/2031 [id number] / NA / [id number] Description:Implant pause pe rformed on all implants [employer] Trilogy 6.5mm 15mm Self Tap Screw Bone [id number] - Sna - [id number] Implanted:Qty : 1 on 08/05/2021 by Sue Oliver MD at [facility] Screw Right: Hip [employer] [id number] 10/24/2029 [id number] / NA / [id number] Description:Implant pause pe rformed [employer] Trilogy 6.5mm 20mm Self Tap Screw Bone [id number] - Sna - [id number] Implanted:Qty : 1 on 08/05/2021 by Sue Oliver MD at [facility] Screw Right: Hip [employer] [id number] 05/20/2031 [id number] / NA / [id number] Description:Implant pause pe rformed [employer] Trilogy 6.5mm 40mm Self Tap Hip Acetabular Cortical Screw Bone [id number] - Sna - [id number] Implanted:Qty : 1 on 10/30/2021 by Sue Oliver MD at [facility] Screw [employer] [id number] 08/28/2031 [id number] / NA / [id number] [employer] Trilogy 6.5mm 15mm Self Tap Screw Bone [id number] - Sna - [id number] Implanted:Qty : 1 on 10/30/2021 by Sue Oliver MD at [facility] Screw [employer] [id number] 07/27/2031 [id number] / NA / [id number] Procedures Procedure Name Priority Date/Time Associated Diagnosis Comments SCREENING MAMMOGRAM BILATERAL W GERARD Schedule Routine, Read Routine (OP Routine) 06/02/2023 2:45 PM CDT Screening mammogram, encounter for PAP AND HIGH RISK HPV, REFLEX TO GENOTYPING Routine 12/23/2020 9:33 AM CDT Encounter for gynecological examination with abnormal finding Screening for cervical cancer SERUM HEPATITIS PANEL Routine 03/25/2014 2:16 PM PIPED BUTTONHOLE MACHINE OPERATOR from Last 3 Months or Most Recently [...] compared to prior imaging studies performed at [facility] on 09/03/2015, 03/16/2017, 08/30/2018 and 09/11/2020. There [...] compared to prior imaging studies performed at [facility] on 09/03/2015, 03/16/2017,08/30/2018 and 09/11/2020. There are [...] AM CDT) CLINICAL INFORMATION: Routine exam Postmenopausal [facility] LMP 02/21/2015 [facility] Previous Pap INFORMATION NOT PROVIDED [facility] Prev. Bx INFORMATION NOT PROVIDED [facility] SOURCE: Cervix, Endocervix [facility] Pap, specimen adequacy Satisfactory for evaluation. Endocervical/rojas sformation zone component present. [facility] HPV interp Negative for intraepithelial lesion or malignancy. [facility] Party Plan Sales Director [place], [place](ASCP) CT screening location: [place] [address] Comment [facility] Comment: EXPLANATORY NOTE: The Pap is a [...] High Risk E6/E7 Not Detected NOT DETECTED [facility] greg/[facility] Comment: Not Detected High Risk HPV types (16,18,31,33,35,39,45,51,52, 56,58,59,66,68) were not detected. Other HPV types which cause anogenital lesions may be present. The significance of the other types of HPV in malignant processes has not been established. Methodology: Real Time PCR Swab 12/23/2020 9:33 AM CDT 12/24/2020 7:59 AM CDT Glenna Shields NP LAB CYTOLOGY ORDERABLES Final Result [facility] [address] [place] [address] [facility] [address] [place] [address] * Serum Hepatitis panel (03/25/2014 2:16 PM PIPED BUTTONHOLE MACHINE OPERATOR) HCV ab Negative NEG HISTORICAL RESULTS Comment: Interpretive Data If confirmation is required, call Laboratory Customer Service to request sample to be sent to [facility] for Hepatitis C Virus (HCV) RNA Detection and Quantitation by Real-Time Reverse Transportation Inspector-PCR (RT-PCR). Current interpretive data was last revised [...] HISTO RICAL RESULTS Serum 03/25/2014 2:16 PM PIPED BUTTONHOLE MACHINE OPERATOR Azar Benson MD LAB BLOOD ORDERABLES [place] l Result HISTORICAL RESULTS from Last 3 Months or Most Recently Relevant to Health Maintenance Insurance [facility] [place] Advance Directives For more information, please contact: [phone] * Full Code (Latest Code Status on File) Date Activated Date Inactivated Comments 10/30/2021 10:36 AM 10/31/2021 5:43 PM * Full Code Date Activated Date Inactivated Comments 08/05/2021 11:43 AM 08/06/2021 2:54 PM * Full Code Date Activated Date Inactivated Comments 03/27/2021 3:04 PM 03/28/2021 7:12 PM * Full Code Date Activated Date Inactivated Comments 09/04/2019 8:47 PM 09/07/2019 7:14 PM Care Teams Station Examiner Relationship Specialty Start Date End Date Dacia Tan MD [address] [address] PCP - General Internal Medicine 05/05/21 Zachary Kwon MD Consulting Physician Urology 03/28/21 Satish Pedroza MD [address] [facility] [place] [address] Consulting Physician Pain Management 12/14/22
--- OUTSIDE RECORDS SUMMARY | 2024-06-21 11:23 | XMS_ITS | Encounter Summary ---
Author Organization [facility] Health Address [address] [place] [address] Care Team Providers Care Cotton Jammer Name Role Phone Virgil Crum MD Primary Care Provider [phone] Encounter Details Date Type Department Care Team (Late st Contact Info) Description 09/16/2014 [facility] Outpatient Visit EXTERNAL NON-[facility] [place] [address] [address] Social History Tobacco Use Types Packs/Day Years Used Date Smoking Tobacco: Never Smokeless Tobacco: Never Alcohol Use Standard Drinks/Week Comments No 0 (1 standard drink = 0.6 oz pur e alcohol) Comments No Sex and Gender Information Value Date Recorded Sex Assigned at Female 04/16/2024 2:23 PM WARP CLAMPER Legal Sex Female 6:08 AM WARP CLAMPER Gender Identity Female 04/16/2024 2:23 PM WARP CLAMPER Sexual Orientation Straight 04/16/2024 2: 23 PM WARP CLAMPER documented as of this encounter Plan of Treatment Upcoming Encounters Date Type Department Care Team (Late st Contact Info) Description 08/10/2024 1:00 PM CDT Appointment [facility] Health Imaging Services - CT Scan [address] [place] [address] 08/10/2024 2:00 PM CDT Office Visit [facility] - Urology [address] [place] [address] Maximilian Christy MD [address] [place] [address] documented as of this encounter Visit Diagnoses Not on filedocumented in this encounter Care Teams Cotton Jammer Relationship Specialty Start Date End Date Virgil Crum MD PCP - General Internal Medicine 09/16/14 04/19/24 documented as of this encounter
--- OUTSIDE RECORDS SUMMARY | 2024-06-21 11:28 | XMS_ITS | CONTINUITY OF CARE DOCUMENT ---
Author Name shaquille corbin Address Unknown Organization [facility] Office Address [address] [place] [address] [address] [place] [address] Phone [phone] Care Team Providers Care Interface Developer Name Role Phone Lino DICK, [place] Unavailable BENNY DUKE MD Unavailable PROBLEMS Condition Status Date Provider Notes Cardiovascular screening active [place] INSURANCE PROVIDERS Payer name Policy type / Coverage type [place] red alliance party ID [employer] Commercial insurance company [id number] TREATMENT PLAN Date Name CT, Coronary Calcium Score HISTORY OF PROCEDURES Procedure Date Procedure Name Provider Procedure Notes S tatus CT- Coronary CA score [place] Huynh MD completed
--- NOTE | 2024-06-21 11:40 | ED_ITS ---
HPI - URI/Sore Throat General Chief Complaint: Upper Respiratory Infection Stated Complaint: Cough Time Seen by Provider: 06/21/24 11:20 Source: patient and RN notes reviewed Mode of arrival: ambulatory Limitations: no limitations History of Present Illness HPI Narrative: 63-year-old female presents Express Care complaining of upper respiratory symptoms and cough for 2 weeks now. Patient was seen her last week who was diagnosed with bacterial sinusitis she was started on Augmentin. Patient says most of her symptoms are improving and her discharge is became more clear. However she states that her cough is worsening to states that it is dry and hacking and nonproductive. She says it is worse at night when she is trying to go to sleep. Patient has been taking Tessalon Perles and says it has not helped at all. Patient denies any fevers, body aches, chills, difficulty breathing, or chest pain. Patient is still taking Augmentin and has a few days left of her prescription. Related Data Home Medications ?Medication ?Instructions ?Recorded ?Confirmed ?Last Taken ?Type atenolol 25 mg tablet mg 06/14/24 Unknown History dextroamphetamine-amphetamine 10 06/14/24 Unknown History mg tablet dextroamphetamine-amphetamine ER PO 06/14/24 Unknown History 15 mg 24hr capsule,extend release duloxetine 20 mg capsule,delayed mg PO 06/14/24 Unknown History release estradiol 0.01% (0.1 mg/gram) vaginal 06/14/24 Unknown History vaginal cream gabapentin 300 mg capsule mg 06/14/24 Unknown History pramipexole 1 mg tablet mg 06/14/24 Unknown History benzonatate 200 mg capsule mg PO 06/21/24 Unknown History Allergies Allergy/AdvReac Type Severity Reaction Status Date / Time codeine Allergy Unknown ITCHING Verified 06/21/24 10:52 Review of Systems Review of Systems: CONSTITUTIONAL: Denies fever, chills, body aches, or sweats. EYES: Denies visual changes, redness, or discharge. ENT: Denies rhinorrhea, sore throat, or otalgia. Positive for congestion. CARDIOVASCULAR: Denies chest pain, palpitations, or edema. RESPIRATORY: Positive for cough. Negative for dyspnea GASTROINTESTINAL: Denies abdominal pain, nausea, vomiting, or diarrhea. GENITOURINARY: Denies dysuria or hematuria. SKIN: Denies rash or itching. MUSCULOSKELETAL: Denies back pain, joint pain, or myalgia. NEUROLOGIC: Denies headache, numbness, or weakness. PSYCHIATRIC: Denies anxiety or depression. All other systems reviewed are negative, except as documented in HPI. [facility] Past Medical History Medical History Hypertension Pneumonia Anxiety and depression Restless leg syndrome History of kidney cancer Narcolepsy Migraine Surgical History Surgical History Hx of cholecystectomy Previous back surgery History of left nephrectomy cancer Social History Social History Smoking status: Never smoker Alcohol intake: current Alcohol use details: rare Substance use type: does not use Comments At the time of my signature, I reviewed and agree with the nursing past medical, surgical, social, and family history. There is no relevant family history pertinent to the patient complaint. Exam Narrative: GENERAL: This is a well-nourished, well-developed adult, in no apparent distress. They are non ill-appearing, nontoxic appearing. HEAD: normocephalic, atraumatic. EYES: Sclera clear/white. Conjunctiva normal. Vision is grossly intact. Extraocular movements intact EARS: External ears normal, auditory canals clear and without drainage, TMs normal without perforation. Hearing grossly intact. NOSE: External nose normal with no obvious nasal discharge, nasal turbinates without redness, no rhinorrhea. THROAT: Mucous membranes moist, posterior pharynx erythemic without swelling. Uvula midline. No exudate. NECK: Neck supple, non-tender without lymphadenopathy, masses or thyromegaly. CARDIOVASCULAR: Regular rate and rhythm without murmurs, gallops, or rubs. RESPIRATORY: Crackles present to the right lower lobe. Lung sounds diminished throughout. Breath sounds equal bilaterally. No wheezes, rales, or rhonchi. Respiratory effort nonlabored, normal respiratory rate, no respiratory distress SKIN: warm, Dry, intact with no suspicious lesions or rash, good texture and turgor. NEURO: awake, alert, and oriented to person, place and time. There were no obvious focal neurologic abnormalities. EXTREMITIES: No joint tenderness, effusion, or edema noted. BACK: Nontender without deformity. No CVA tenderness. Course Course Emergency Course: Portions of this record may have been created with voice recognition software Level of Care: Express Care Visit Vital Signs Vital signs: Vital Signs Temperature 97.9 F 06/21/24 10:51 Pulse Rate 90 06/21/24 10:51 Respiratory Rate 20 06/21/24 10:51 Blood Pressure 131/77 06/21/24 10:51 Pulse Oximetry 99 06/21/24 10:51 Oxygen Delivery Room Air 06/21/24 10:51 Temperature 97.9 F 06/21/24 10:51 Pulse Rate 90 06/21/24 10:51 Respiratory Rate 20 06/21/24 10:51 Blood Pressure 131/77 06/21/24 10:51 Pulse Oximetry 99 06/21/24 10:51 Oxygen Delivery Room Air 06/21/24 10:51 Reviewed MDM - URI/Sore Throat MDM Narrative Medical decision making narrative: Chest x-ray is negative for any pneumonia or acute findings. Patient likely has a bronchitis. Patient's cough is uncontrollable despite Tessalon Perles. Will give her promethazine DM as needed for cough. Will also give patient albuterol inhaler and prednisone. Discussed physical exam findings. Advised supportive measures and signs/symptoms to go to the ER. Pt is appropriate for outpt treatment and f/u. Differential Diagnosis Differential diagnosis: Likely upper respiratory infection, bronchitis and other (Pneumonia) Imaging Data Radiologist's impression: ITS Impressions Chest X-Ray 06/21/24 11:40 Impression: Normal chest. Critical Care Time Critical Care Time Critical Care Time: No Discharge Plan Discharge Clinical Impression: Bronchitis Patient Disposition: Home Condition: Stable Instructions: Acute Bronchitis (ED) Additional Instructions: Her chest x-ray was negative for any evidence of pneumonia or any acute findings. It is likely you have have a bronchitis. Please finish the Augmentin you currently taking. Take the prednisone as directed, take it in the morning and with food. Take the promethazine-DM as directed. Do not take any other cough medicine while taking promethazine-DM. Do not drive or operate machinery as this may make you drowsy. Take albuterol inhaler as needed for wheezing or shortness of breath. Follow-up with primary care provider in 1 week. If your symptoms worsen or you develop fevers, shortness of breath, chest pain or any other concerns please go to the ER immediately. Patient Language: Macedonian Prescriptions: New prednisone 20 mg tablet 40 mg PO DAILY 5 Days Qty: 10 0RF albuterol sulfate [Ventolin HFA] 90 mcg/actuation HFA aerosol inhaler 2 puff inhalation QID PRN (Reason: shortness of breath or wheezing) Qty: 8.5 0RF promethazine-DM 6.25-15 mg/5 mL syrup 5 ml PO Q6H PRN (Reason: cough) 3 Days Qty: 118 0RF No Action pramipexole 1 mg tablet dextroamphetamine-amphetamine 10 mg tablet atenolol 25 mg tablet gabapentin 300 mg capsule estradiol 0.01 % (0.1 mg/gram) cream VAGINAL dextroamphetamine-amphetamine 15 mg capsule,extended release 24hr PO duloxetine 20 mg capsule,delayed release(DR/EC) PO amoxicillin-pot clavulanate 875-125 mg tablet 1 tablet PO Q12H Qty: 20 0RF Rx Instructions: take with food, recommend taking probiotic of eating Activia yogurt while on this medication benzonatate 150 mg capsule 150 mg PO TID PRN (Reason: cough) Qty: 20 0RF benzonatate 200 mg capsule PO Follow-up/Referrals: PHYSICIAN NOT ON STAFF,NONSTAFF [Primary Care Provider] - Time of Disposition: 12:04
== END 2024-06-21 12:16 | disposition home or self-care (01) ==
DX: J40 Bronchitis, not specified as acute or chronic (principal); I10 Essential (primary) hypertension; G25.81 Restless legs syndrome; Z85.528 Personal history of other malignant neoplasm of kidney; Z90.5 Acquired absence of kidney
CPT/HCPCS: 71046; 99213; G0463